=== PATIENT | female | born 1980 | race Two or more races ===

== ENCOUNTER 2022-05-28 10:51 | Emergency (ER) | payer BC, OTHER, SELFPAY ==
--- NOTE | 2022-05-28 11:00 | RT.EKG_ITS ---
APPROVED REPORT Exam: Resting ECG Reason for Exam: chest pain Patient Location: E HR:56 bpm ECG Measurements Heart Rate 56 AXIS MT 135 P 4 QRSd 86 QRS 68 QT 375 T 48 QTc 362 Conclusion Slow sinus arrhythmia...V-rate 45- 66, mean< 60 artifact II and II
[2022-05-28 11:03] VITALS: BP 132/69; PULSE 67; RESP 16; TEMP 36.7; O2SAT 100
[2022-05-28 11:40] LABS: Abs Immature Grans 0.02 10^3/uL (0.0-0.06); Absolute Basophil Count 0.02 10^3/uL (0.0-0.2); Absolute Eosinophil Count 0.11 10^3/uL (0.0-0.7); Absolute Lymphocyte Count 1.22 10^3/uL (1.2-3.4); Basophils % 0.3; Eosinophils % 1.6; HCT 34.7 % (36.0-46.0); HGB 10.2 g/dL (11.2-15.7); Immature Grans % 0.3; Lymphocytes % 18.3; MCH 21.8 pg (27.0-33.0); MCHC 29.4 % (32.0-36.0); MCV 74 fL (80-95); MPV 8.7 fL (8.0-11.0); Neutrophils % 67.5; Platelet Count 431 10^3/uL (130-400); RBC 4.67 10^6/uL (3.93-5.22); RDW 16.3 % (11.7-14.6); RDW-SD 43.5 fL; WBC 6.67 10^3/uL (4.4-10.8)
--- NOTE | 2022-05-28 11:44 | ED.GENADUL_ITS ---
Discharge Plan Disposition Patient Disposition: HOME Condition: Stable Discharge Details Clinical Impression: Chest pain, Anemia, Sinusitis Primary Care Provider: Unknown,Unknown ED Provider: Master Guerrero Home Meds and New Rx's Prescriptions: New amoxicillin-pot clavulanate 875-125 mg tablet 1 tab PO BID Qty: 13 0RF Continued nifedipine 60 mg Tablet Extended Release 24hr 60 mg PO DAILY prednisone 2.5 mg Tablet 2.5 mg PO DAILY nebivolol [Bystolic] 5 mg Tablet 5 mg PO DAILY Discharge Instructions Instructions: Chest Pain (ED), Sinusitis (ED), Anemia (ED) Additional Instructions: Blood testing revealed that you have mild anemia with a hemoglobin of 10.2. Be sure to discuss this with your primary care physician. Please take acetaminophen (tylenol) - 650mg every 6 hours by mouth as needed for pain. Please contact your primary care physician to arrange follow-up. Be sure to discuss and review all final diagnostic study reports with your primary care physician. Return to the ER immediately for any worsening or new concerning symptoms. Medical Decision Making 1300 --42-year-old female who presents 2 to 3 weeks post COVID illness with left-sided pleuritic chest and back pain over the past 4 days. Presentation is not consistent with ACS. Screening EKG was reviewed and interpreted by me: Please see report, there is some wavy artifact, bradycardic at 56 bpm, nondiagnostic. Consider acute life-threatening pulmonary embolism. Plan to obtain CT of the chest. 1333 --CT of the chest was interpreted by radiology: No PE. No acute process. Labs reviewed and troponin negative. Anemia noted. Suspect suspect musculoskeletal etiology. I will give Tylenol 650 mg. Plan for discharge with outpatient follow-up. I have recommended the patient call her PCP. Usual and customary discharge instructions were reviewed with the patient. Patient has had sinus congestion over the past 2 to 3 weeks since COVID. She has no sinus tenderness but given her immunosuppressive therapy, I am concerned about potential for bacterial sinusitis. I will initiate treatment with Augmentin. Initial dose provided here in the emergency department. Patient needs to establish primary care within the area. I will asked the care management help in arranging timely outpatient follow-up with PCP Imaging Data Radiologic Study: Imaging: CT Scan (chest) Radiologist's impression: FINDINGS: Pulmonary arteries: Normal. No pulmonary emboli. Aorta: Unremarkable. No aortic aneurysm. No aortic dissection. Lungs: Low lung volumes. Pleural spaces: Unremarkable. No pneumothorax. No pleural effusion. Heart: Prominent cardiac silhouette. Lymph nodes: Scattered axillary lymph nodes. Bones/joints: Unremarkable for age. No acute fracture. Soft tissues: Unremarkable. IMPRESSION: No acute findings. Lab Data Lab results reviewed: Yes I reviewed the patient's lab results. Labs: Laboratory Tests Range/Units 05/28/22 05/28/22 11:35 11:35 WBC (4.4-10.8) 10^3/uL 6.67 RBC (3.93-5.22) 10^6/uL 4.67 Hgb (11.2-15.7) g/dL 10.2 L Hct (36.0-46.0) % 34.7 L MCV (80-95) fL 74 L MCH (27.0-33.0) pg 21.8 L MCHC (32.0-36.0) % 29.4 L RDW (11.7-14.6) % 16.3 H Plt Count (130-400) 10^3/uL 431 H MPV (8.0-11.0) fL 8.7 Immature Gran % 0.3 Neutrophils % 67.5 Lymphocytes % 18.3 Monocytes % 12.0 Eosinophils % 1.6 Basophils % 0.3 Nucleated RBC % (0.0-0.3) % 0.0 Absolute Neutrophils (1.2-6.7) 10^3/uL 4.50 Absolute Lymphocytes (1.2-3.4) 10^3/uL 1.22 Absolute Monocytes (0.1-0.8) 10^3/uL 0.80 Absolute Eosinophils (0.0-0.7) 10^3/uL 0.11 Absolute Basophils (0.0-0.2) 10^3/uL 0.02 RBC Morphology See Below Microcytosis 2+ Sodium (136-145) mmol/L 138 Potassium (3.5-5.1) mmol/L 3.5 Chloride (98-107) mmol/L 104 Carbon Dioxide (21.0-32.0) mmol/L 25.3 Anion Gap (3-11) mmol/L 8.7 BUN (7-18) mg/dL 11 Creatinine (0.55-1.02) mg/dL 0.7 Est GFR (CKD-EPI 2020) (mL/min/1.73m2) 109.98 Glucose (74-106) mg/dL 85 Calcium (8.5-10.1) mg/dL 9.0 Magnesium (1.8-2.4) mg/dL 2.1 Total Bilirubin (0.2-1.0) mg/dL 0.4 AST (15-37) U/L 10 L ALT (14-59) U/L 21 Alkaline Phosphatase (46-116) U/L 79 Troponin I (<or=60) ng/L < 50 Total Protein (6.4-8.2) g/dL 8.6 H Albumin (3.4-5.0) g/dL 4.0 HPI General Mode of arrival: ambulatory . Date/Time Provider Initiated Documentation: 05/28/22 11:28 . Limitations to Documentation: no limitations . Information obtained by: patient . HPI Narrative: 42-year-old female with history of hypertension and rheumatoid arthritis on chronic low-dose prednisone presents with a chief complaint of back pain. Patient notes she had COVID 2 to 3 weeks ago, symptoms resolved after 5 days or so other than persistent chronic nasal congestion. Patient has now developed left upper back pain and left-sided chest discomfort over the past 4 days that is been constant. Discomfort is worse with deep inspiration. She has no associated leg swelling or calf tenderness. No fever. Related Data Home Medications Medication Instructions Recorded Confirmed amoxicillin 875 mg-potassium 1 tab PO BID #13 tabs 05/28/22 clavulanate 125 mg tablet nebivolol 5 mg tablet (Bystolic) 5 mg PO DAILY 05/28/22 05/28/22 nifedipine 60 mg tablet,extended 60 mg PO DAILY 05/28/22 05/28/22 release 24 hr prednisone 2.5 mg tablet 2.5 mg PO DAILY 05/28/22 05/28/22 Previous Rx's Medication Instructions Recorded amoxicillin 875 mg-potassium 1 tab PO BID #13 tabs 05/28/22 clavulanate 125 mg tablet Allergies Allergy/AdvReac Type Severity Reaction Status Date / Time No Known Allergies Allergy Unverified 05/28/22 11:09 General Stated Complaint: Chest Pain JORDAN: 3 Review of Systems ENT Comments: Sinus congestion Cardiovascular Cardiovascular: Reports as per HPI Respiratory Respiratory: Reports as per HPI PFSH All Active Problems (Updated 05/28/22 @ 13:45 by Master Guerrero MD) Rheumatoid arteritis (Acute) Chest pain (Acute) Anemia (Chronic) Sinusitis (Acute) Social History Smoking/Tobacco Use Status: Never Smoking risk assessment performed?: Yes Alcohol Intake: current Alcohol Intake frequency: 0-2 drinks per day Substance use type: does not use Exam Const General: cooperative and no acute distress HENMT Head: atraumatic Mouth: moist mucous membranes Eyes Conjunctivae: normal conjunctivae Sclera: normal sclerae Neck Neck: trachea midline and supple Resp Effort & Inspection: normal respiratory effort and not labored Auscultation: clear to auscultation bilaterally, no rales, no rhonchi and no wheezes Cardio Rate: regular rate and not tachycardic Rhythm: regular rhythm Heart Sounds: no murmurs GI Palpation: soft, not firm, no guarding, no masses, not rigid and nontender Skin General skin exam: no rashes or lesions noted Neuro General: patient alert, patient awake and tone normal Extrem General: no calf tenderness and no edema Psych Appearance: grossly normal Mental Status: mental status grossly normal Course Vital Signs Vital signs: Vital Signs Temperature 36.7 C 05/28/22 11:03 Pulse 67 05/28/22 11:03 Respiratory Rate 16 05/28/22 11:03 Blood Pressure 132/69 05/28/22 11:03 Pulse Oximetry 100 05/28/22 11:03 Temperature 36.7 C 05/28/22 11:03 Temperature Source Skin 05/28/22 11:03 Pulse 67 05/28/22 11:03 Respiratory Rate 16 05/28/22 11:03 Respiratory Effort 05/28/22 11:39 Respiratory Depth Normal 05/28/22 11:39 Respiratory Pattern Normal 05/28/22 11:39 Blood Pressure 132/69 05/28/22 11:03 Blood Pressure Position Sitting 05/28/22 11:03 Pulse Oximetry 100 05/28/22 11:03 Oxygen Delivery Method Room Air 05/28/22 11:03 Oxygen Flow Rate 0 05/28/22 11:03 Pain Level 7 05/28/22 11:03 PAWSS Have you Been Recently Intoxicated or Drunk Within the Last 30 days?: No Have you Ever Experienced Previous Episodes of Alcohol Withdrawal?: No Have you ever Experienced Withdrawal Seizures?: No Have you ever Experienced Delirium Tremens(DT)s?: No Have you ever undergone Alcohol Rehabilitation Treatment (i.e, inpt ot outpatient treatment programs)?: No Have you ever Experienced Blackouts?: No Have you ever Combined Alcohol with other Downers within the last 90 days?: No Have you ever Combined Alcohol with any other Substance of Abuse during the last 90 days?: No Positive Blood Alcohol level on Presentation? [PCS.BAL]: No Evidence of Increased Autonomic Activity (i.e. HR>120, tremor, sweating, agitation, nausea)?: No Result: 0
[2022-05-28 11:49] LABS: Diff Comment RBC Morph Reviewed; Microcytosis 2+
[2022-05-28 11:58] LABS: ALT 21 U/L (14-59); AST 10 U/L (15-37); Alkaline Phosphatase 79 U/L (46-116); Anion Gap 8.7 mmol/L (3-11); BUN 11 mg/dL (7-18); Bilirubin, Total 0.4 mg/dL (0.2-1.0); CO2 25.3 mmol/L (21.0-32.0); CREATININE 0.7 mg/dL (0.55-1.02); Chloride 104 mmol/L (98-107); Estimated GFR 109.98 (mL/min/1.73m2); Glucose 85 mg/dL (74-106); Magnesium 2.1 mg/dL (1.8-2.4); Potassium 3.5 mmol/L (3.5-5.1); Sodium 138 mmol/L (136-145); Total Protein 8.6 g/dL (6.4-8.2); Troponin I < 50 ng/L (<or=60)
--- NOTE | 2022-05-28 12:16 | DI.CT_ITS ---
Exam(s) CT CHEST PE CTA EXAM: CT CHEST PE CTA CLINICAL HISTORY: pleuritic chest pain, covid 2-3 weeks ago. TECHNIQUE: Imaging Protocol: Axial CT angiography was performed with multi-slice acquisition and mu lti-planar and/or 3D reconstructions. CONTRAST MATERIAL: Intravenous: Omnipaque 350 Contrast volume:structured data in ml COMPARISON: No exams were available for comparison FINDINGS: CT angiography of the chest was performed with intravenous infusion of 100 cc of Omnipaque 350. The lungs are clear. No pleural effusion. Tracheobronchial tree appears intact. No evidence of pulmonary embolic disease. Thoracic aorta is of normal diameter, no thoracic aortic an eurysm or dissection, major branch vessels appear intact. No mediastinal or hilar adenopathy. Images obtained through the upper abdomen show an apparent small left lobe hepatic cyst. Otherwise v isualized portions of the liver and spleen are unremarkable.. IMPRESSION: Negative CT angiogram of the chest. No evidence of pulmonary embolic disease. RADIATION DOSE DELIVERED: 319.93mGy.cm Total DLP 319.93mGy.cm Total DLP !Error CTDIvol DATA REPOSITORY: All CT scans at this facility are submitted to the National Radiology Data Registry (NRDR) Dose Index Registry (DIR) with the [employer] (ACR). RADIATION OPTIMIZATION: All CT scans at this facility use at least one of these dose optimization te chniques: automated exposure control; mA and/or kV adjustment per patient size (includes targeted exa ms where dose is matched to clinical indication); or iterative reconstruction.
--- NOTE | 2022-05-28 13:05 | DI.VRAD_ITS ---
PROCEDURE INFORMATION: Exam: CTA Chest With Contrast Exam date and time: 05/28/2022 11:57 AM Age: 42 years old Clinical indication: Pain; Pleuordynia; Additional info: 2-3 weeks S/P covid TECHNIQUE: Imaging protocol: Computed tomographic angiography of the chest with contrast. 3D rendering (Not supervised by radiologist): MIP and/or 3D reconstructed images were created by the technologist. Radiation optimization: All CT scans at this facility use at least one of these dose optimization techniques: automated exposure control; mA and/or kV adjustment per patient size (includes targeted exams where dose is matched to clinical indication); or iterative reconstruction. Contrast material: [id number]; Contrast volume: 100 ml; Contrast route: INTRAVENOUS (IV); COMPARISON: No relevant prior studies available. FINDINGS: Pulmonary arteries: Normal. No pulmonary emboli. Aorta: Unremarkable. No aortic aneurysm. No aortic dissection. Lungs: Low lung volumes. Pleural spaces: Unremarkable. No pneumothorax. No pleural effusion. Heart: Prominent cardiac silhouette. Lymph nodes: Scattered axillary lymph nodes. Bones/joints: Unremarkable for age. No acute fracture. Soft tissues: Unremarkable. IMPRESSION: No acute findings. Dictated and Authenticated by: Felisa Harris MD. Ordering:POP Thao MD
--- NOTE | 2022-05-28 13:30 | RT.EKG_ITS ---
APPROVED REPORT Exam: Resting ECG Reason for Exam: chest pain Patient Location: E HR:53 bpm ECG Measurements Heart Rate 53 AXIS IL 136 P 8 QRSd 85 QRS 58 QT 402 T 27 QTc 377 Conclusion Sinus bradycardia...rate< 60
--- NOTE | 2022-05-28 13:50 | NUR.NOTE ---
Dr Guerrero requesting the patient get established with a PCP,patient does not currently have a PCP. I placed this on the care management list. ROSENDAB
[2022-05-28] MEDS: Acetaminophen 325 MG TAB 650 MG PO (13:52)
[2022-05-28] MEDS: Amoxicillin 875/Clav. 125 TAB PO (13:52)
[2022-05-28] MEDS: Omnipaque 350 MG/ML 100 ML BTL IJ (14:47)
== END 2022-05-28 14:12 | disposition home or self-care (01) ==
PROVIDERS: Emergency Provider Student in an Organized Health Care Education/Training Program
DX: R07.81 Pleurodynia (principal); J32.9 Chronic sinusitis, unspecified; D64.9 Anemia, unspecified; Z86.16 Personal history of COVID-19; R00.1 Bradycardia, unspecified; M54.6 Pain in thoracic spine
CPT/HCPCS: 71275; 80053; 93005; 99285; 83735; 84484; 85025; 93010; 99284; J3490

== ENCOUNTER 2023-09-28 01:51 | Observation (INO) | payer BC, OTHER, SELFPAY ==
[2023-09-28] VITALS (13 sets, daily range): BP systolic 100–171; BP diastolic 52–89; PULSE 54–74; RESP 14–18; TEMP 36.5–37.9; O2SAT 98–100; BMI 23.9
--- NOTE | 2023-09-28 02:00 | DI.CT_ITS ---
Exam(s) CT ABDOMEN PELVIS WO EXAM: CT ABDOMEN PELVIS WO CLINICAL HISTORY: left upper flank pain, eval for stone/ diverticult. TECHNIQUE: Imaging Protocol: Axial computed tomography images with coronal and sagittal reformatted images were created and reviewed CONTRAST MATERIAL: Intravenous: none Oral: None COMPARISON: CT CT CHEST PE CTA from 05/28/2022 FINDINGS: VISUALIZED LUNG BASES: No nodules nor pleural effusions evident. ABDOMEN: There is no ascites. LIVER: There is a benign cyst in the left hepatic lobe again noted, measuring 1 cm, unchanged. No ot her additional focal liver findings. GALLBLADDER/BILIARY: There are multiple gallstones which measure approximately 1.4 by 1.2 cm each. G allbladder appears edematous. CBD is not dilated and there are no radiopaque calculi evident in the CBD. PANCREAS: No evidence of pancreatic mass nor dilatation of the pancreatic duct. SPLEEN: Spleen is not enlarged. No obvious intrasplenic lesions. ADRENALS: There are no significant adrenal masses. KIDNEYS:No cysts evident. No solid renal masses. No calculi nor hydronephrosis. . ABDOMINAL AORTA: Abdominal aorta is not enlarged. LYMPH NODES: There is no retroperitoneal nor paraaortic adenopathy. ABDOMINAL WALL: No evidence of significant anterior abdominal wall nor inguinal hernia. GI: There is no evidence of bowel obstruction, free air, nor abscess. PELVIS: LYMPH NODES: There is no intrapelvic nor inguinal adenopathy. GI: No evidence of appendicitis.No evidence of sigmoid diverticulitis. URINARY BLADDER: No calculi nor obvious masses evident REPRODUCTIVE: Uterus is anteverted, upper normal size. No obvious fibroids. No abnormal adnexal mas ses. Small amount of fluid in the cul-de-sac. OSSEOUS: No significant osseous lesions. No fractures. IMPRESSION: 1. Cholelithiasis. There are multiple 14 x 12 mm gallstones and there is gallbladder wall edema, con cerning for acute cholecystitis. The CBD is not dilated and does not contain radiopaque calculi. Th ere is no evidence of pancreatitis. 2. There is a 1 cm benign cyst in the liver which is unchanged from prior CT scan of May 2022. n o further workup required for this finding. RADIATION DOSE DELIVERED: 692.6mGy.cm Total DLP DATA REPOSITORY: All CT scans at this facility are submitted to the National Radiology Data Registry (NRDR) Dose Index Registry (DIR) with the [employer] (ACR). RADIATION OPTIMIZATION: All CT scans at this facility use at least one of these dose optimization te chniques: automated exposure control; mA and/or kV adjustment per patient size (includes targeted exa ms where dose is matched to clinical indication); or iterative reconstruction.
--- NOTE | 2023-09-28 02:00 | RT.EKG_ITS ---
APPROVED REPORT Exam: Resting ECG Reason for Exam: chest pain Patient Location: E HR:55 bpm ECG Measurements Heart Rate 55 AXIS WI 155 P 6 QRSd 86 QRS 55 QT 400 T 17 QTc 383 Conclusion Sinus bradycardia...rate< 60 Physician: [id number]. No stemi
--- NOTE | 2023-09-28 02:02 | W.ED.GENAD ---
HPI <Chuck Tellez DO - Last Filed: 09/28/23 07:11> General Date/Time Provider Initiated Documentation: 09/28/23 01:52. HPI Narrative: This is a pleasant 43-year-old female with a past medical history of rheumatoid arthritis on chronic prednisone, hypertension, who presents today for evaluation of left flank pain. Patient states that for the last 2 days she has had a gradual dull achy sensation in her left flank and back. She has been still eating normal foods, but she has been notably nauseous. She did have some vomiting today. No diarrhea. She does admit to chills but denies fever. No urinary complaints. Abdominal pain radiates from the left flank down to the left anterior lateral aspect of the abdomen. As well as some mild left epigastric pain. She denies any tearing or ripping sensation. No previous abdominal surgeries. No other complaints at this time. No family history of colon cancer. No other sick contacts at home. Related Data Home Medications Medication Instructions Recorded Confirmed nebivolol 5 mg tablet (Bystolic) 5 mg PO DAILY 05/28/22 09/28/23 nifedipine 60 mg tablet,extended 60 mg PO DAILY 05/28/22 09/28/23 release 24 hr cetirizine 10 mg tablet (Zyrtec) 10 mg PO DAILY PRN 09/17/23 09/28/23 hydroxychloroquine 200 mg tablet 200 mg PO DAILY 09/17/23 09/28/23 (Plaquenil) prednisone 5 mg tablet 5 mg PO DAILY 09/17/23 09/28/23 zafirlukast 10 mg tablet 20 mg PO ONCE 09/17/23 09/28/23 Allergies Allergy/AdvReac Type Severity Reaction Status Date / Time No Known Allergies Allergy Unverified 09/28/23 02:00 General Stated Complaint: Abd Prob JORDAN: 3 Review of Systems <Chuck Tellez DO - Last Filed: 09/28/23 07:11> All systems reviewed & are unremarkable except as noted in HPI and below Exam <Chuck Tellez DO - Last Filed: 09/28/23 07:11> Narrative Exam Narrative: 1.Const: Well-nourished, Well-developed, appearing stated age 2.Eyes: PERRL, no conjunctival injection, and symmetrical lids. 3.ENT: Atraumatic external nose and ears. Moist MM. Neck: Symmetric, trachea midline, No thyromegaly. 4.CVS: +S1/S2, No murmurs or gallops. Peripheral pulses 2+ and equal in all extremities. Brisk capillary refill in all extremities. 5.RESP: Unlabored respiratory effort. Clear to auscultation bilaterally. No wheezes rales or rhonchi 6.GI: Soft, mild bloating. No rosa maria distention. Mild left-sided CVA tenderness. Mild left-sided abdominal tenderness in the epigastric and mid abdominal region on the left. 7.MSK: Normocephalic/Atraumatic, Extremities w/o deformity or ttp No cyanosis or clubbing, Normal movement of all extremities 8.Skin: Warm, Dry. No rashes or lesions. 9.Neuro: measurement operator II-XII grossly intact. Sensation grossly intact, no focal neurologic deficits. 10.Psych: (AAO) x3. Appropriate mood and affect Course <Chuck Tellez DO - Last Filed: 09/28/23 07:11> Vital Signs Vital signs: Vital Signs Temperature 36.6 C 09/28/23 01:58 Pulse 68 09/28/23 01:58 Respiratory Rate 18 09/28/23 01:58 Blood Pressure 132/67 09/28/23 01:58 Pulse Oximetry 100 09/28/23 01:58 Temperature 36.6 C 09/28/23 01:58 Temperature Source Temporal Artery Scan 09/28/23 01:58 Pulse 68 09/28/23 01:58 Respiratory Rate 18 09/28/23 01:58 Blood Pressure 132/67 09/28/23 01:58 Pulse Oximetry 100 09/28/23 01:58 Oxygen Delivery Method Room Air 09/28/23 01:58 Oxygen Flow Rate 0 09/28/23 01:58 Pain Level 7 09/28/23 01:58 Medical Decision Making <Chuck Tellez DO - Last Filed: 09/28/23 07:11> This is a pleasant 43-year-old female with a past medical history of rheumatoid arthritis on chronic prednisone, hypertension, who presents today for evaluation of left flank pain. Patient states that for the last 2 days she has had a gradual dull achy sensation in her left flank and back. She has been still eating normal foods, but she has been notably nauseous. She did have some vomiting today. No diarrhea. She does admit to chills but denies fever. No urinary complaints. Abdominal pain radiates from the left flank down to the left anterior lateral aspect of the abdomen. As well as some mild left epigastric pain. She denies any tearing or ripping sensation. No previous abdominal surgeries. No other complaints at this time. No family history of colon cancer. No other sick contacts at home. Exam demonstrates mild left CVA tenderness, left-sided epigastric and abdominal tenderness. No guarding or rebound. Negative obturator and psoas sign. Differential includes urolithiasis, diverticulitis, gastric ulcer. Less likely cardiac etiology. Will evaluate for these concerning etiologies, get a CT scan, give Toradol Zofran GI cocktail and rehydrate gently monitor closely and reassess. 4:06 AM Patient's laboratory workup has returned, she does feel better after medications. No white count or bandemia. No left shift. D-dimer was normal. EKG shows no evidence of STEMI. Electrolytes normal, renal function normal. Transaminases and bilirubin normal. Troponin normal. Urinalysis shows no abnormality. CT scan shows evidence of cholelithiasis with pericholecystic fluid without significant inflammatory changes. No other acute process per virtual radiology. There is evidence of a benign-appearing hepatic cyst, but no other significant abnormality otherwise. On reexamination the patient's pain is diminished, right upper quadrant tenderness is mildly appreciated on deep palpation. With the pericholecystic fluid, the gallstones, and the mild right upper quadrant tenderness, I do feel that ultrasound is indicated in this scenario with her atypical and diffuse symptoms. We we will order for an ultrasound this morning. FINDINGS: Lungs: Minimal bibasilar dependent. Heart: Base of heart is unremarkable as visualized. Liver: Fluid attenuating 9 x 8 mm hepatic hypodensity appreciated in the left hepatic lobe, consistent with benign hepatic cysts. Gallbladder and bile ducts: Four large calcified gallstones are appreciated. A smaller punctate gallstone is noted towards the fundus. Small amount of pericholecystic fluid is noted without significant surrounding inflammatory change. Pancreas: Normal. No ductal dilation. Spleen: Normal. No splenomegaly. Adrenal glands: Normal. No mass. Kidneys and ureters: No evidence of calcified renal stone. No obstruction. Stomach and bowel: Unremarkable. No obstruction. No mucosal thickening. Appendix: No evidence of appendicitis. Intraperitoneal space: Unremarkable. No free air. No significant fluid collection. Vasculature: Unremarkable. No abdominal aortic aneurysm. Lymph nodes: Unremarkable. No enlarged lymph nodes. Urinary bladder: Unremarkable as visualized. Reproductive: Unremarkable as visualized. 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 Soft tissues: Small fat containing umbilical hernia is noted. Other findings: All caps impression: IMPRESSION: 1. Cholelithiasis with pericholecystic fluid without significant surrounding inflammatory change. If there is clinical concern for cholecystitis ultrasound is recommended. 2. Benign hepatic cyst. Thank you for allowing us to participate in the care of your patient. Dictated and Authenticated by: Leo Lagos DO 09/28/2023 3:45 AM Eastern Time ([place] & [place]) Quality:[facility] Health Related Social Needs: No Data to Display <Prince Quevedo MD - Last Filed: 09/28/23 10:37> This is a pleasant 43-year-old female with a past medical history of rheumatoid arthritis on chronic prednisone, hypertension, who presents today for evaluation of left flank pain. Patient states that for the last 2 days she has had a gradual dull achy sensation in her left flank and back. She has been still eating normal foods, but she has been notably nauseous. She did have some vomiting today. No diarrhea. She does admit to chills but denies fever. No urinary complaints. Abdominal pain radiates from the left flank down to the left anterior lateral aspect of the abdomen. As well as some mild left epigastric pain. She denies any tearing or ripping sensation. No previous abdominal surgeries. No other complaints at this time. No family history of colon cancer. No other sick contacts at home. Exam demonstrates mild left CVA tenderness, left-sided epigastric and abdominal tenderness. No guarding or rebound. Negative obturator and psoas sign. Differential includes urolithiasis, diverticulitis, gastric ulcer. Less likely cardiac etiology. Will evaluate for these concerning etiologies, get a CT scan, give Toradol Zofran GI cocktail and rehydrate gently monitor closely and reassess. 4:06 AM Patient's laboratory workup has returned, she does feel better after medications. No white count or bandemia. No left shift. D-dimer was normal. EKG shows no evidence of STEMI. Electrolytes normal, renal function normal. Transaminases and bilirubin normal. Troponin normal. Urinalysis shows no abnormality. CT scan shows evidence of cholelithiasis with pericholecystic fluid without significant inflammatory changes. No other acute process per virtual radiology. There is evidence of a benign-appearing hepatic cyst, but no other significant abnormality otherwise. On reexamination the patient's pain is diminished, right upper quadrant tenderness is mildly appreciated on deep palpation. With the pericholecystic fluid, the gallstones, and the mild right upper quadrant tenderness, I do feel that ultrasound is indicated in this scenario with her atypical and diffuse symptoms. We we will order for an ultrasound this morning. FINDINGS: Lungs: Minimal bibasilar dependent. Heart: Base of heart is unremarkable as visualized. Liver: Fluid attenuating 9 x 8 mm hepatic hypodensity appreciated in the left hepatic lobe, consistent with benign hepatic cysts. Gallbladder and bile ducts: Four large calcified gallstones are appreciated. A smaller punctate gallstone is noted towards the fundus. Small amount of pericholecystic fluid is noted without significant surrounding inflammatory change. Pancreas: Normal. No ductal dilation. Spleen: Normal. No splenomegaly. Adrenal glands: Normal. No mass. Kidneys and ureters: No evidence of calcified renal stone. No obstruction. Stomach and bowel: Unremarkable. No obstruction. No mucosal thickening. Appendix: No evidence of appendicitis. Intraperitoneal space: Unremarkable. No free air. No significant fluid collection. Vasculature: Unremarkable. No abdominal aortic aneurysm. Lymph nodes: Unremarkable. No enlarged lymph nodes. Urinary bladder: Unremarkable as visualized. Reproductive: Unremarkable as visualized. 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 Soft tissues: Small fat containing umbilical hernia is noted. Other findings: All caps impression: IMPRESSION: 1. Cholelithiasis with pericholecystic fluid without significant surrounding inflammatory change. If there is clinical concern for cholecystitis ultrasound is recommended. 2. Benign hepatic cyst. Thank you for allowing us to participate in the care of your patient. Dictated and Authenticated by: Leo Lagos DO 09/28/2023 3:45 AM Eastern Time ([place] & [place]) 10: [address] and ultrasound imaging general surgeon Dr. Ames was consulted for evaluation for possible cholecystitis. Patient remains nonperitoneal afebrile nontoxic. Has been n.p.o. all evening.. Patient be taken for cholecystectomy PFSH <Chuck Tellez DO - Last Filed: 09/28/23 07:11> All Active Problems (Updated 09/28/23 @ 10:37 by Prince Quevedo MD) Cholecystitis (Acute) Rheumatoid arthritis (Chronic) Seropositive CCP and RF Hypertension (Chronic) Osteoarthritis (Chronic) Rheumatoid arteritis (Acute) Family History Father Alcohol use disorder Heart disease Hypertension Mother Glaucoma Social History Smoking/Tobacco Use Status: Never Second Hand Exposure: No Smoking risk assessment performed?: Yes Alcohol Intake: current Alcohol Intake frequency: 0-2 drinks per day Substance use type: does not use Adopted: No Caregiver/Support person: No Foster care: No Household members: spouse and children Housing: house Number of Children: 3 Communication Needs: None Education Level: master's degree Do you need help understanding health information?: Rarely 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 Pets and animals: Yes (1) Pets and animals: dog(s) Sexually active: No Do you think of yourself as: straight/heterosexual Current gender identity: female What is your relationship status?: How often do you talk on the phone with friends or family?: three or more times per week How often do you get together with friends or relatives?: once per week Do you belong to any clubs or organized social groups?: no Panel score (0-1 are the most socially isolated patients): 2 What type of physical activity do you participate in: walking Duration: 30-45 minutes/day Frequency: 5-6 times per week Special chrystal needs: No Seatbelt use: always Helmet use: Yes Drive intox or ride w/intox truss driver helper: No Sign Out <Chuck Tellez DO - Last Filed: 09/28/23 07:11> Sign Out Data: Sign Out Comment: Left flank pain and right upper quadrant pain on palpation. CT shows pericholecystic fluid and multiple gallstones. Labs normal. Pending ultrasound. Last updated by Chuck Tellez DO at 09/28/23 05:12 Discharge Plan Disposition Patient Disposition: Admit to [facility] Condition: Stable Discharge Details Chief Complaint: Abd Prob Clinical Impression: Cholecystitis Primary Care Provider: Unknown,Unknown ED Provider: Prince Quevedo Home Meds and New Rx's Prescriptions: No Action hydroxychloroquine [Plaquenil] 200 mg tablet 200 mg PO DAILY prednisone 5 mg tablet 5 mg PO DAILY zafirlukast 10 mg tablet 20 mg PO ONCE Rx Instructions: must be taken on empty stomach, at least 1 hr before or 2 hrs after a meal/food cetirizine [Zyrtec] 10 mg tablet 10 mg PO DAILY PRN nifedipine 60 mg Tablet Extended Release 24hr 60 mg PO DAILY nebivolol [Bystolic] 5 mg Tablet 5 mg PO DAILY
[2023-09-28 02:18] LABS: Abs Immature Grans 0.02 10^3/uL (0.0-0.06); Absolute Basophil Count 0.05 10^3/uL (0.0-0.2); Absolute Eosinophil Count 0.05 10^3/uL (0.0-0.7); Absolute Lymphocyte Count 1.04 10^3/uL (1.2-3.4); Absolute Monocyte Count 0.68 10^3/uL (0.1-0.8); Absolute Neutrophil Count 4.41 10^3/uL (1.2-6.7); Basophils % 0.8; Eosinophils % 0.8; HGB 10.9 g/dL (11.2-15.7); Immature Grans % 0.3; Lymphocytes % 16.6; MCH 25.4 pg (27.0-33.0); MCHC 31.1 % (32.0-36.0); MCV 82 fL (80-95); Monocytes % 10.9; Neutrophils % 70.6; Platelet Count 369 10^3/uL (130-400); RBC 4.29 10^6/uL (3.93-5.22); RDW 14.8 % (11.7-14.6); RDW-SD 44.1 fL; WBC 6.25 10^3/uL (4.4-10.8)
[2023-09-28] MEDS: Ondansetron 4 MG/2 ML VIAL IVP (02:26)
[2023-09-28] MEDS: Normal Saline 1,000 ML 1000 ML IV (02:26)
[2023-09-28] MEDS: Ketorolac 15 MG/ML VIAL IVP (02:26)
[2023-09-28 02:28] LABS: Bilirubin Negative (Negative); Blood Negative (Negative); Clarity Clear (Clear); Glucose Negative (Negative); Ketones Negative (Negative); Leukocyte Esterase Negative (Negative); Nitrite Negative (Negative); Urobilinogen 0.2 mg/dL (Up to 0.2); pH 7.5 (5-8)
[2023-09-28 02:36] LABS: ALT 15 U/L (14-59); AST 9 U/L (15-37); Albumin 3.8 g/dL (3.4-5.0); Alkaline Phosphatase 59 U/L (46-116); Anion Gap 9.4 mmol/L (3-11); BUN 12 mg/dL (7-18); Bilirubin, Total 0.2 mg/dL (0.2-1.0); CO2 26.6 mmol/L (21.0-32.0); CREATININE 0.8 mg/dL (0.55-1.02); Calcium 8.9 mg/dL (8.5-10.1); Chloride 104 mmol/L (98-107); Estimated GFR 93.12 (mL/min/1.73m2); Glucose 124 mg/dL (74-106); Lipase 43 U/L (16-77); Potassium 3.8 mmol/L (3.5-5.1); Sodium 140 mmol/L (136-145); Total Protein 7.6 g/dL (6.4-8.2); Troponin I < 50 ng/L (< or =60)
[2023-09-28 02:53] LABS: D-Dimer 180 ng/mlFEU (<500)
--- NOTE | 2023-09-28 03:45 | DI.VRAD_ITS ---
PROCEDURE INFORMATION: Exam: CT Abdomen And Pelvis Without Contrast Exam date and time: 09/28/2023 3:09 AM Age: 43 years old Clinical indication: Abdominal pain; Flank; Left upper quadrant (luq); Additional info: Luq flank pain, no h/o surg or kidney stones, pain x 2 days worsening, eval for stone / diverticulitis TECHNIQUE: Imaging protocol: Computed tomography of the abdomen and pelvis without contrast. COMPARISON: CT CHEST PE CTA 05/28/2022 11:57 AM FINDINGS: Lungs: Minimal bibasilar dependent. Heart: Base of heart is unremarkable as visualized. Liver: Fluid attenuating 9 x 8 mm hepatic hypodensity appreciated in the left hepatic lobe, consistent with benign hepatic cysts. Gallbladder and bile ducts: Four large calcified gallstones are appreciated. A smaller punctate gallstone is noted towards the fundus. Small amount of pericholecystic fluid is noted without significant surrounding inflammatory change. Pancreas: Normal. No ductal dilation. Spleen: Normal. No splenomegaly. Adrenal glands: Normal. No mass. Kidneys and ureters: No evidence of calcified renal stone. No obstruction. Stomach and bowel: Unremarkable. No obstruction. No mucosal thickening. Appendix: No evidence of appendicitis. Intraperitoneal space: Unremarkable. No free air. No significant fluid collection. Vasculature: Unremarkable. No abdominal aortic aneurysm. Lymph nodes: Unremarkable. No enlarged lymph nodes. Urinary bladder: Unremarkable as visualized. Reproductive: Unremarkable as visualized. 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 Soft tissues: Small fat containing umbilical hernia is noted. Other findings: All caps impression: IMPRESSION: 1. Cholelithiasis with pericholecystic fluid without significant surrounding inflammatory change. If there is clinical concern for cholecystitis ultrasound is recommended. 2. Benign hepatic cyst. Dictated and Authenticated by: Leo Lagos MD. Ordering:JULIUS Woods MD
--- NOTE | 2023-09-28 04:00 | DI.US_ITS ---
Exam(s) US ABDOMEN LIMITED EXAM: US ABDOMEN LIMITED CLINICAL HISTORY: RUQ pain, eval for cholecystitis TECHNIQUE: Ultrasound abdomen performed using standard protocol. COMPARISON: CT CT ABDOMEN PELVIS WO from 09/28/2023 FINDINGS: There is no ascites evident. LIVER: There is a benign cyst in the left hepatic lobe measuring 1.5 x 1.0 cm. GALLBLADDER/BILIARY: There are multiple mobile gallstones. Gallbladder wall is mildly thickened-4 mm , and there is a small amount of pericholecystic fluid. The common hepatic duct ismildly dilated, measuring 7mm at the level of [place] hepatis. PANCREAS: There is no evidence of pancreatic mass nor dilatation of the pancreatic duct. RIGHT KIDNEY:No evidence of solid mass, calculus, nor hydronephrosis. No cortical cysts evident. IMPRESSION: 1. Cholelithiasis and evidence of acute cholecystitis. 2. CBD mildly dilated measuring 7 mm. 3. There is a solitary benign cyst in the left hepatic lobe measuring 15 x 10 mm. No other right upper quadrant finding no ascites. DATA REPOSITORY:
[2023-09-28] MEDS: ACETAMINOPHEN 1,000 MG/100 ML BTL 400 MG IVPB (04:22)
--- NOTE | 2023-09-28 10:39 | HPE_ITS ---
Assessment and Plan Assessment and plan (1) Cholecystitis: Status: Acute Assessment and plan: History and physical seems most consistent with acute cholecystitis. Large gallstones, pericholecystic fluid on the ultrasound are also consistent with that diagnosis. We talked about different management options, but at this point, I think she is a great candidate for a laparoscopic cholecystectomy. We talked about the risks and benefits of the operation, what to expect in terms of recovery. I think she has a very good understanding of this, we will proceed with cholecystectomy today. History of Present Illness History of Present Illness Chief Complaint: Abdominal pain Narrative: Maddy is 43 years old. Over the past several days she has noticed intermittent upper abdominal discomfort. She was feeling pretty good yesterday, but began developing increasing pain in the same area through the later part of the night up to about 1:00 in the morning. She had a cheeseburger and Chinese fries for dinner. She describes the pain as sharp and stabbing, and radiating a little bit across the mid epigastrium towards her right and left flanks. It was associated with a little bit of loss of appetite, and maybe some mild nausea, but no vomiting. She denied any subjective sense of fevers. She came to the emergency department and underwent a CAT scan of the abdomen and pelvis that demonstrated cholelithiasis. This was followed up with a ultrasound that showed some gallbladder wall thickening, and some pericholecystic fluid. She has never had any abdominal surgery. Past medical history is most significant for rheumatoid arthritis and hypertension. Review of Systems Constitutional Constitutional: Reports fatigue, Denies fever(s) and Reports poor appetite Eyes Eyes: Reports system reviewed and no additional complaints, except as documented ENT Ears, Nose, Mouth, and Throat: Reports system reviewed and no additional complaints, except as documented Cardiovascular Cardiovascular: Denies chest pain and Denies dyspnea Respiratory Respiratory: Denies chest congestion, Denies cough and Denies dyspnea Gastrointestinal Gastrointestinal: Reports abdominal pain, Reports bloating, Denies change in stool character and Denies vomiting Musculoskeletal Musculoskeletal: Reports system reviewed and no additional complaints, except as documented Integumentary/Breasts Skin/Breast: Reports system reviewed and no additional complaints, except as documented Neurologic Neurologic: Reports system reviewed and no additional complaints, except as documented Endocrine Endocrine: Denies cold intolerance and Reports fatigue Hematologic/Lymphatic Hematologic/Lymphatic: Denies easy bleeding and Denies easy bruising PFSH All Active Problems Cholecystitis (Acute) Rheumatoid arthritis (Chronic) Seropositive CCP and RF Hypertension (Chronic) Osteoarthritis (Chronic) Rheumatoid arteritis (Acute) Family History Father Alcohol use disorder Heart disease Hypertension Mother Glaucoma Social History Smoking/Tobacco Use Status: Never Second Hand Exposure: No Smoking risk assessment performed?: Yes Alcohol Intake: current Alcohol Intake frequency: 0-2 drinks per day Substance use type: does not use Adopted: No Caregiver/Support person: No Foster care: No Household members: spouse and children Housing: house Number of Children: 3 Communication Needs: None Education Level: master's degree Do you need help understanding health information?: Rarely 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 Pets and animals: Yes (1) Pets and animals: dog(s) Sexually active: No Do you think of yourself as: straight/heterosexual Current gender identity: female What is your relationship status?: How often do you talk on the phone with friends or family?: three or more times per week How often do you get together with friends or relatives?: once per week Do you belong to any clubs or organized social groups?: no Panel score (0-1 are the most socially isolated patients): 2 What type of physical activity do you participate in: walking Duration: 30-45 minutes/day Frequency: 5-6 times per week Special chrystal needs: No Seatbelt use: always Helmet use: Yes Drive intox or ride w/intox high lift driver: No Meds Allergies and Home Medications Allergies Allergy/AdvReac Type Severity Reaction Status Date / Time No Known Allergies Allergy Unverified 09/28/23 02:00 Home Medications Medication Instructions Recorded Confirmed Type nebivolol 5 mg tablet (Bystolic) 5 mg PO DAILY 05/28/22 09/28/23 History nifedipine 60 mg tablet,extended 60 mg PO DAILY 05/28/22 09/28/23 History release 24 hr cetirizine 10 mg tablet (Zyrtec) 10 mg PO DAILY PRN 09/17/23 09/28/23 History hydroxychloroquine 200 mg tablet 200 mg PO DAILY 09/17/23 09/28/23 History (Plaquenil) prednisone 5 mg tablet 5 mg PO DAILY 09/17/23 09/28/23 History zafirlukast 10 mg tablet 20 mg PO ONCE 09/17/23 09/28/23 History Exam Const General: cooperative, healthy appearing and comfortable Orientation: awake and oriented x3 Eyes General: appearance normal, both eyes and all related structures Conjunctivae: conjunctivae normal Sclera: sclerae normal Resp Effort & Inspection: normal respiratory effort and able to speak in complete sentences Auscultation: clear to auscultation bilaterally Cardio Jugular venous pressure: no JVD Rate: regular rate Rhythm: regular rhythm GI Inspection: non-distended Palpation: soft, no guarding, no hernias and tender (Mild right upper quadrant) Auscultation: normal bowel sounds Skin General skin exam: normal turgor Neuro General: patient alert, patient awake and patient oriented x3 Cognition: normal cognition Extrem Right lower extremity: no edema Left lower extremity: no edema Results Labs 09/28/23 02:10 09/28/23 02:10 Labs: Laboratory Results - last 24 hr 09/28/23 02:10 WBC 6.25 RBC 4.29 Hgb 10.9 L Hct 35.0 L MCV 82 MCH 25.4 L MCHC 31.1 L RDW 14.8 H Plt Count 369 MPV 9.0 Immature Gran % 0.3 Neutrophils % 70.6 Lymphocytes % 16.6 Monocytes % 10.9 Eosinophils % 0.8 Basophils % 0.8 Nucleated RBC % 0.0 Absolute Neutrophils 4.41 Absolute Lymphocytes 1.04 L Absolute Monocytes 0.68 Absolute Eosinophils 0.05 Absolute Basophils 0.05 D-Dimer 180 Sodium 140 Potassium 3.8 Chloride 104 Carbon Dioxide 26.6 Anion Gap 9.4 BUN 12 Creatinine 0.8 Est GFR (CKD-EPI 2020) 93.12 Glucose 124 H Calcium 8.9 Total Bilirubin 0.2 AST 9 L ALT 15 Alkaline Phosphatase 59 Troponin I < 50 Total Protein 7.6 Albumin 3.8 Lipase 43 Urine Color Yellow Urine Clarity Clear Urine pH 7.5 Ur Specific [place] 1.020 Urine Protein Negative Urine Ketones Negative Urine Blood Negative Urine Nitrite Negative Urine Bilirubin Negative Urine Urobilinogen 0.2 Ur Leukocyte Esterase Negative Urine Glucose Negative Last Vital Signs Temp 98.1 F 09/28/23 06:13 Pulse 64 02/09/24 06:13 Resp 16 09/28/23 06:13 BP 100/52 L 09/28/23 06:13 Pulse Ox 98 09/28/23 06:13
--- NOTE | 2023-09-28 12:49 | ANES.PREOP_ITS ---
General Info Date of Service Date Performed: 09/28/23 Height: 5 ft 3 in Weight: 61.235 kg Body Mass Index (BMI): 23.9 Surgical Procedure: Operation Date: 09/28/23 14:10 Proposed Procedure Side Surgeon p Cholecystectomy Laparoscopic Jose Luis Ames MD Meds Allergies and Home Medications Allergies Allergy/AdvReac Type Severity Reaction Status Date / Time No Known Allergies Allergy Unverified 09/28/23 13:36 Home Medication Medication Instructions Recorded nebivolol 5 mg tablet (Bystolic) 5 mg PO DAILY 05/28/22 nifedipine 60 mg tablet,extended 60 mg PO DAILY 05/28/22 release 24 hr cetirizine 10 mg tablet (Zyrtec) 10 mg PO DAILY PRN 09/17/23 hydroxychloroquine 200 mg tablet 200 mg PO DAILY 09/17/23 (Plaquenil) prednisone 5 mg tablet 5 mg PO DAILY 09/17/23 zafirlukast 10 mg tablet 20 mg PO ONCE 09/17/23 [facility] Active Problems Active Problems: Problem Status Onset Code Cholecystitis K81.9 Rheumatoid arthritis M06.9 Hypertension I10 Osteoarthritis M19.90 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 Tobacco Smoking/Tobacco Use Status: Never Second hand exposure: No Alcohol Alcohol Intake: current Alcohol intake frequency: 0-2 drinks per day Substance Use Substance use type: does not use Vital Signs and Lab Results Vital Signs Most Recent Vital Signs in EMR: Most Recent Vital Signs Temp Pulse Resp BP Pulse Ox 36.7 C 64 16 100/52 L 98 09/28/23 06:13 09/28/23 06:13 09/28/23 06:13 09/28/23 06:13 09/28/23 06:13 Lab Results 09/28/23 02:10 09/28/23 02:10 Blood Type / Crossmatch: 2 No Data to Display Complete Blood Count: 2 White Blood Count 6.25 10^3/uL (4.4-10.8) 09/28/23 02:10 Red Blood Count 4.29 10^6/uL (3.93-5.22) 09/28/23 02:10 Hemoglobin 10.9 g/dL (11.2-15.7) L 09/28/23 02:10 Hematocrit 35.0 % (36.0-46.0) L 09/28/23 02:10 Platelet Count 369 10^3/uL (130-400) 09/28/23 02:10 Complete Metabolic Panel: 2 Sodium 140 mmol/L (136-145) 09/28/23 02:10 Potassium 3.8 mmol/L (3.5-5.1) 09/28/23 02:10 Chloride 104 mmol/L (98-107) 09/28/23 02:10 Carbon Dioxide 26.6 mmol/L (21.0-32.0) 09/28/23 02:10 BUN 12 mg/dL (7-18) 09/28/23 02:10 Creatinine 0.8 mg/dL (0.55-1.02) 09/28/23 02:10 Est GFR (CKD-EPI 2020) 93.12 (mL/min/1.73m2) 09/28/23 02:10 Calcium 8.9 mg/dL (8.5-10.1) 09/28/23 02:10 Albumin 3.8 g/dL (3.4-5.0) 09/28/23 02:10 Glucose 124 mg/dL (74-106) H 09/28/23 02:10 Liver Function Panel: 2 Alanine Aminotransferase (ALT/SGPT) 15 U/L (14-59) 09/28/23 02: 10 Aspartate Amino Transf (AST/SGOT) 9 U/L (15-37) L 09/28/23 02:1 0 Coagulation Panel: 2 D-Dimer 180 ng/mlFEU (<500) 09/28/23 02:10 Cardiac Panel: 2 Troponin I < 50 ng/L (< or =60) 09/28/23 Arterial Blood Gas: 2 No Data to Display Venous Blood Gas: 2 No Data to Display Pancreas Panel: 2 Lipase 43 U/L (16-77) 09/28/23 02:10 Thyroid Panel: 2 No Data to Display Infectious Disease: 2 No Data to Display Blood Cultures: 2 No Data to Display Toxicology Panel: 2 No Data to Display Panel: 2 No Data to Display Imaging and Studies Imaging and Studies Study information below may be from another EMR and interpreted by another provider. Please see original notes in EMR for more complete details. EKG Summary: 10/13: sinus balta. Anesthesia Assessment and Plan Anesthesia History Personal History: No History of Anesthesia Complications Family History: No Family History of Anesthesia Complications Exercise Tolerance Exercise Tolerance: Metabolic Equivalents>4 Cardiac & Pulmonary Exam Cardiac Exam: Normal S1/S2 Heart Sounds Pulmonary Exam: Clear Bilateral Breath Sounds Implantable Cardiac Device Does patient have a Pacemaker or an ICD?: No Airway Exam Known Difficult Airway: No Mallampati Class: 3 Mouth Opening: Narrow (< 3cm) Thyromental Distance: Greater than 3 cm Neck Range of Motion: Full ROM Neck Circumference: Normal Teeth Condition: Normal Dentition ASA Classification ASA Score: ASA 2 Emergency Case?: Yes NPO Status NPO Status: NPO Clears >2 hours, Solids >8 hours Status Status: Negative HCG Anesthesia Plan Resuscitation Status: Full Code Anesthesia Technique: General Anesthesia Airway Planned: Endotracheal Tube Monitors Used: Standard Monitors Preoperative Comments:: 43 yo female for gall bladder removal. currently in the ED. had received acetaminophen @ ~04, ketorolac/ondansetron @ ~02. Sig PMHx: HTN (nifedipine, nebivolol), RA (hydroxychloroquine). never smoker, occ EtOH.
[2023-09-28] MEDS: Indocyanine green 25 MG VIAL 5 MG IVP (14:04)
[2023-09-28] MEDS: Normal Saline Flush 10 ML SYR ×2 (14:06→14:20)
[2023-09-28] MEDS: Lactated Ringers 1,000 ML 30 ML IV (14:20)
[2023-09-28] MEDS: ceFAZolin 2,000 MG in Normal Saline 100 ML 200 MG IVPB (15:00)
[2023-09-28] MEDS: Bupivacaine 0.25% Pres-Free 30 ML VIAL (15:29)
--- NOTE | 2023-09-28 16:30 | GB_PTH ---
PATIENT: Maddy Poon LOC: [id number]#:[id number] AGE/SX: 43/F ROOM: MS.205 RE09/28/[address]: Jose Luis Ames MD : 1980 BED: A DIS: 09/29/2023 SPEC #: [id number] RECD: 09/28/23 18:17 STATUS: [facility] REQ #: [id number] DANIEL: 09/28/23 16:[address]: Jose Luis Ames DEPT: Surgical Specimen RECD BY: Della Bar ENTERED: 09/28/23 18:18 SP TYPE: GB OTHR DR: Unknown,Unknown Tissues: 1 - GALLBLADDER Procedures: GROSS AND MICRO LEVEL 3 Comments: [id number]
--- NOTE | 2023-09-28 17:21 | ROE_ITS ---
Date of service: 09/28/23 Time of Service: 17:21 Operative Note Operative Note DATE OF PROCEDURE: 09/28/23 PRE-OP DIAGNOSIS: Acute cholecystitis POST-OP DIAGNOSIS: same PROCEDURE: Laparoscopic cholecystectomy SURGEON: Jose Luis Ames REPULPING SUPERVISOR: Eva Tinoco REPULPING SUPERVISOR: Vanessa Larsen ANESTHESIA TYPE: General LMA/ETT Refer to Anesthesia Record ESTIMATED BLOOD LOSS: 10 PATHOLOGY: other (Gallbladder) COMPLICATIONS: None Patient was transported to: PACU Patient's condition: stable Indications: Maddy is a 43-year-old woman with acute onset of abdominal pain. CT scan showed cholelithiasis, and ultrasound showed gallbladder wall thickening and pericholecystic fluid consistent with acute cholecystitis. Findings: Acute calculus cholecystitis. Procedure Description: After satisfactory induction of general anesthesia, I prepped and draped the abdomen in usual fashion. Next, I began with a periumbilical incision. I dissected down to the fascia and elevated it with Keyshawn clamps. I incised it s harply. Next, I passed a 12 mm operating port in the umbilical site. I secured it to the fascia with 0 Vicryl stitches. I then insufflated the peritoneal cavity. Next I inserted a 5 mm 30 degree scope and examined the underlying viscera. There was no evidence of injury created upon entry. I then placed the patient in some reverse Trendelenburg and left side down positioning. Then, with the assistance of the laparoscope, I used local anesthetic to anesthetize the midepigastric and 2 right upper quadrant port sites. Under the vision of the laparoscope, I passed 3 more 5 mm ports. I then grasped the gallbladder fundus and elevated cephalad. The body of the gallbladder was quite thickened, and edematous consistent with acute cholecystitis. The infundibulum was gently grasped and retracted slightly towards the patient's right side. There was quite a bit of inflammation here. With the assistance of indocyanine green, we began dissecting out the cystic duct. I worked in a lateral to medial fashion. The duct was isolated, but it appeared quite large for her size. Therefore, I continued the dissection back towards the gallbladder body. As the edema was taken down, it became evident that this was actually the common bile duct, with a very short cystic duct takeoff towards the gallbladder proper the division was gently dissected free, and the true cystic duct was carefully skeletonized. It was doubly clipped with great care taken to preserve a cuff of distal cystic duct: The common duct in order to minimize any trauma to the common bile duct proper. The cystic artery was immediately adjacent to this, and that was also doubly clipped and divided. I then used electrocautery to dissect the gallbladder off the gallbladder fossa. I passed the gallbladder into an Endo Catch bag and removed it by way of the umbilical site. I examined the surgical field. It was hemostatic. I then removed the 5 mm ports under the vision of the laparoscope. Finally, I removed the umbilical port site and closed the fascia with Vicryl stitches. Sites were irrigated, and the skin was closed with subcuticular stitches. Bandages were applied, patient was awakened from anesthesia, and transferred to the recovery unit.
--- NOTE | 2023-09-28 17:31 | W.ANESPOSTOP ---
Postoperative Evaluation Date, Time and Location Date Performed: 09/28/23 Time Performed: 17:31 Patient Location: PACU Vital Signs Most Recent Imported Vital Signs: Most Recent Vital Signs Temp Pulse Resp BP Pulse Ox 36.7 C 61 17 157/71 H 99 09/28/23 17:20 09/28/23 17:20 09/28/23 17:20 09/28/23 17:20 09/28/23 17:20 Pain Score Most Recent Pain Score: Most Recent Pain Score Pain Level 5 09/28/23 17:20 Assessment Mental Status: Awake (Alert & Oriented to Patient Baseline) Airway and Respiratory Function: Patent airway with normal (patient baseline) respiratory exam Cardiovascular Function: Hemodynamically Stable Hydration Status: Adequately Hydrated Nausea & Vomiting: Active Nausea or Vomiting Present Nausea and Vomiting Management: Nausea and vomiting active, being addressed with medication Pain: Pain is tolerable per patient Peripheral Nerve Block: Patient did not receive a nerve block
[2023-09-28] MEDS: Droperidol 5 MG/2 ML VIAL 0.625 MG IVP (17:35)
[2023-09-28] MEDS: traMADol 50 MG TAB PO (21:28)
--- NOTE | 2023-09-29 06:47 | W.PM.DS.N ---
Date of service: 09/29/23 Time of Service: 06:59 DS: Diagnosis Discharge Diagnosis (1) Cholecystitis: Status: Acute Discharge Plan Disposition Patient Disposition: Home Condition: Good Discharge Details Reason For Visit: Severe abd pain, two days of it. Admit Date/Time: 09/28/23 20:19 Admit Provider: Jose Luis Ames Attending Provider: Jose Luis Ames Primary Care Provider: Unknown,Unknown Hospital Course Hospital Course: Maddy is 43 years old. She came to the ER with acute onset of abdominal pain and was found to have cholecystitis. She underwent laparoscopic cholecystectomy, and was discharged the next morning. Home Meds and New Rx's Prescriptions: New tramadol 50 mg tablet 50 mg PO Q8H PRNQty: 12 0RF Rx Instructions: take one to two tablets by mouth up to every 8 hours if needed for severe pain Continued hydroxychloroquine [Plaquenil] 200 mg tablet 200 mg PO DAILY prednisone 5 mg tablet 5 mg PO DAILY zafirlukast 10 mg tablet 20 mg PO ONCE Rx Instructions: must be taken on empty stomach, at least 1 hr before or 2 hrs after a meal/food cetirizine [Zyrtec] 10 mg tablet 10 mg PO DAILY PRN nifedipine 60 mg Tablet Extended Release 24hr 60 mg PO DAILY nebivolol [Bystolic] 5 mg Tablet 5 mg PO DAILY Discharge Instructions Instructions: Laparoscopic Cholecystectomy (GEN) Additional Instructions: Maddy, I am so sorry that you found yourself dealing with gallstones. I really hope that you feel better soon. Expect the pain from the surgery to get a little better each day. You should be up and walking around. Even a brisk walk as your strength comes back will help move things along. I recommend alternating tylenol and ibuprofen around the clock for 48 hours. Add in the tramadol prescription if you need it. After 2 days just take meds as you need them. Bruising is very common so don't be alarmed by that. If the incisions turn red, please let me know. If you feel feverish or sick at all, please let me know. I am happy to make you an appointment in follow up if you like. Alternatively you can just keep me in the loop as to how things are going. Let us know if you need anything at all. 1. Resume all of your medications. 2. Use ice packs or heating pads on the incisions to help with pain. 3. Okay to use tylenol and ibuprofen over the counter, and the prescription tramadol if necessary. 4. Leave bandages in place for 24 hours, then remove. 5. Shower with warm soapy water. Pat dry. Use a bandaid if needed to protect your clothing. 6. No soaking or tub baths until I see you in the office. 7. No heavy lifting until I see you in the office. 8. Call the office (or go directly to the emergency room after hours) if you notice any of the following: Develop chills (warm to touch), or if you have a thermometer and your temperature is above 101 Difficulty breathing or difficultly swallowing Persistent vomiting Any bleeding ? exceeding one tablespoon 9. Call your physician if the site where your intravenous was started becomes red, swollen, painful, and warm to touch. Activity:: no heavy lifting Equipment/Supplies:: No Equipment Needed Diet:: As Tolerated DS: Summary Time Spent with Patient providing and/or coordinating discharge services: Less than 30 minutes Status at Discharge Functional status at discharge: independent ambulation Overall status at discharge: patient is progressing back to baseline Mental Status: mental status grossly normal Speech and Movement: speech and movement normal Mood: congruent mood Affect: normal affect Quality:SDOH Health Related Social Needs: No Data to Display Exam GI Other: abdomen soft and appropriately tender. Bandages clean Psych Mental Status: mental status grossly normal Speech and Movement: speech and movement normal Mood: congruent mood Affect: normal affect DS: Data Vitals/I&O Vitals and I&O: Vital Signs Temperature 100.2 F H 09/28/23 19:47 Temperature Source Tympanic 09/28/23 19:47 Pulse 66 09/28/23 22:08 Pulse Rhythm Regular 09/28/23 21:30 Respiratory Rate 18 09/28/23 22:08 Respiratory Effort Normal 09/28/23 21:30 Respiratory Depth Normal 09/28/23 21:30 Respiratory Pattern Normal 09/28/23 21:30 Blood Pressure 163/82 H 09/28/23 22:08 Blood Pressure Mean 94 09/28/23 03:18 Pulse Oximetry 98 09/28/23 22:08 Respiratory End-tidal CO2 39 09/28/23 17:20 Oxygen Delivery Method Room Air 09/28/23 22:08 Oxygen Flow Rate 0 09/28/23 22:08 Pain Level 5 09/28/23 21:28 Comment RN Notified 09/28/23 19:47 Intake & Output 09/28/23 09/28/23 09/29/23 11:59 23:59 11:59 Intake Total 1100 / 1807 707 / 1807 Output Total Balance 1100 / 1797 697 / 1797 Weight 135 lb 135 lb Intake: IV 1100 / 1807 707 / 1807 Output: Estimated Blood Loss Other: Emesis Description None PFSH All Active Problems Cholecystitis (Acute) Rheumatoid arthritis (Chronic) Seropositive CCP and RF Hypertension (Chronic) Osteoarthritis (Chronic) Rheumatoid arteritis (Acute) Family History Father Alcohol use disorder Heart disease Hypertension Mother Glaucoma Social History Smoking/Tobacco Use Status: Never Second Hand Exposure: No Smoking risk assessment performed?: Yes Alcohol Intake: current Alcohol Intake frequency: 0-2 drinks per day Substance use type: does not use Adopted: No Caregiver/Support person: No Foster care: No Household members: spouse and children Housing: house Number of Children: 3 Communication Needs: None Education Level: master's degree Do you need help understanding health information?: Rarely 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 Pets and animals: Yes (1) Pets and animals: dog(s) Sexually active: No Do you think of yourself as: straight/heterosexual Current gender identity: female What is your relationship status?: How often do you talk on the phone with friends or family?: three or more times per week How often do you get together with friends or relatives?: once per week Do you belong to any clubs or organized social groups?: no Panel score (0-1 are the most socially isolated patients): 2 What type of physical activity do you participate in: walking Duration: 30-45 minutes/day Frequency: 5-6 times per week Special chrystal needs: No Seatbelt use: always Helmet use: Yes Drive intox or ride w/intox automation driver: No Time Spent with Patient Time Spent with Patient: <45 minutes Time was spent: counseling the patient and care coordination
--- NOTE | 2023-09-29 08:43 | PDOC.CMIN ---
Date of service: 09/29/23 Time of Service: 08:43 Care Management Initial Assmt Initial Assessment REASON FOR HOSPITALIZATION:: Severe Abdominal pain PREVIOUS FUNCTIONAL STATUS/SOCIAL/FAMILY SUPPORTS:: Resides in [place], [place] with , [place]. Relocated from [place], [place]. ADVANCE DIRECTIVES:: None on file. Has patient been provided with info about the portal/API?: No Did the patient sign up for the portal?: No CODE STATUS:: Full Code INSURANCE COVERAGE / FINANCIAL ISSUES:: [employer] CURRENT HOME/COMMUNITY SERVICES/EQUIPMENT:: Care transferred from [facility] PRIMARY CARE PHYSICIAN:: Manuel Larry POTENTIAL DISCHARGE NEEDS:: New PCP appointment 10/02/23 PATIENT/FAMILY EDUCATION NEEDS:: Review discharge instructions, discuss Ask Me Three. ANTICIPATED BARRIERS TO DISCHARGE:: None identified TRANSPORTATION:: Via private vehicle PLAN:: Maddy will return home when ready per MD. She will follow up with her new PCP at [facility] and plan of care as prescribed. CM continues to follow. PFSH All Active Problems Cholecystitis (Acute) Rheumatoid arthritis (Chronic) Seropositive CCP and RF Hypertension (Chronic) Osteoarthritis (Chronic) Rheumatoid arteritis (Acute) Family History Father Alcohol use disorder Heart disease Hypertension Mother Glaucoma Social History Smoking/Tobacco Use Status: Never Second Hand Exposure: No Smoking risk assessment performed?: Yes Alcohol Intake: current Alcohol Intake frequency: 0-2 drinks per day Substance use type: does not use Adopted: No Caregiver/Support person: No Foster care: No Household members: spouse and children Housing: house Number of Children: 3 Communication Needs: None Education Level: master's degree Do you need help understanding health information?: Rarely 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 Pets and animals: Yes (1) Pets and animals: dog(s) Sexually active: No Do you think of yourself as: straight/heterosexual Current gender identity: female What is your relationship status?: How often do you talk on the phone with friends or family?: three or more times per week How often do you get together with friends or relatives?: once per week Do you belong to any clubs or organized social groups?: no Panel score (0-1 are the most socially isolated patients): 2 What type of physical activity do you participate in: walking Duration: 30-45 minutes/day Frequency: 5-6 times per week Special chrystal needs: No Seatbelt use: always Helmet use: Yes Drive intox or ride w/intox swing driver: No SDOH(Care Management) Screening Will the Patient Participate in the Screening?: Unable to obtain
== END 2023-09-29 09:14 | disposition home or self-care (01) ==
LOC: ER 10:37 → SUR 13:54 → DSU 13:57 → SUR 13:59 → MS 17:29 → SUR 20:39 → MS 20:39
PROVIDERS: Student in an Organized Health Care Education/Training Program; Admitting Provider Surgery; Emergency Provider Emergency Medicine; PCP Family Medicine; Visit Provider Surgery
PROC: 0FT44ZZ Resection of Gallbladder, Percutaneous Endoscopic Approach (ICD-10-PCS; CPT 47562; principal; 2023-09-28 14:00)
DX: K80.10 Calculus of gallbladder with chronic cholecystitis without obstruction (principal); Z79.899 Other long term (current) drug therapy; M06.9 Rheumatoid arthritis, unspecified; I10 Essential (primary) hypertension; I77.6 Arteritis, unspecified; M19.90 Unspecified osteoarthritis, unspecified site
CPT/HCPCS: 47562; 80053; 83690; 93005; 96361; 96365; 96366; 96375; 99222; 99239; 99285; 74176; 76705; 81003; 84484; 85025; 85379; 88304; 93010; G0378; J0131; J0665; J0690; J1100; J1790; J1885; J2001; J2405; J2704; J3475

== ENCOUNTER → 2023-11-06 08:44 | Outpatient (CLI) | payer BC, OTHER, SELFPAY ==
--- NOTE | 2023-11-06 09:18 | DI.RAD_ITS ---
Exam(s) XR KNEE LT 4V+ EXAM: XR KNEE LT 4V+ CLINICAL HISTORY: Pain after a fall, LT KNEE PAIN, M25.562. TECHNIQUE: 2D digital imaging was performed. Three views. COMPARISON: No exams were available for comparison FINDINGS: BONES: No acute fracture is present. No bony destructive lesion is seen. Small enthesophyte at quadr iceps insertion on the patella. JOINTS: The knee is normally aligned. No joint effusion is seen. The joint spaces are maintained. No significant periarticular spurring. SOFT TISSUE: Normal. IMPRESSION: No acute abnormality. DATA REPOSITORY: RADIATION DOSE DELIVERED:
== END ==
PROVIDERS: PCP Family Medicine; Visit Provider Family Medicine
DX: M25.562 Pain in left knee (principal)
CPT/HCPCS: 73564

== ENCOUNTER → 2023-11-28 04:23 | Outpatient (CLI) | payer BC, SELFPAY ==
--- NOTE | 2023-11-28 13:00 | DI.MRI_ITS ---
Exam(s) MR LOWER JOINT LT WO EXAM: MR LOWER JOINT LT WO CLINICAL HISTORY: Persistent pain after injury on 10/11,S89.90xa TECHNIQUE: Multiplanar multisequence MRI of the knee was performed. COMPARISON: CR XR KNEE LT 4V+ from 11/06/2023 FINDINGS: EFFUSION: There is a moderate size knee joint effusion. There is no Ricci cyst in the popliteal katerina a. No loose intra-articular bodies. MARROW:There is bone contusion signal in the lateral tibial plateau as well as prominent subarticular bone edema in the outer half of the lateral femoral condyle. No abnormal intraosseous signal in the medial compartment nor in the patella. There are no significant osseous lesions. PATELLOFEMORAL COMPARTMENT: The quadriceps tendon is intact. The patellar ligament is intact. There is no significant thinning of the retropatellar cartilage. No evidence of fissure nor signific ant chondral defect. No osteochondral defect at this level.There is no intraosseous signal to sugges t recent patellar dislocation. There are no patellar retinacular tears. CRUCIATE LIGAMENTS: There is abnormal signal throughout the anterior cruciate ligament consistent wit h significant tearing of this structure. The the center of tearing appears to be at the junction of the mid and upper 3rd of this structure.The posterior cruciate ligament is intact. MEDIAL COMPARTMENT/MEDIAL MENISCUS: There is some signal abnormality in the posterior horn of the med ial meniscus but this does not violate an articular surface. The meniscal root is intact. There is no meniscal extrusion. There is mild cartilage thinning over the weight-bearing surface of medial co ndyle. No subarticular edema noted. No osteochondral defects. No osteophytes.. MEDIAL COLLATERAL LIGAMENT: Intact LATERAL COMPARTMENT/LATERAL MENISCUS: There is no evidence of lateral meniscal tear.Mild cartilage th inning noted over the outer 3rd of the lateral femoral condyle with abundant subarticular edema. The re is no formed osteochondral defect.No osteophytes. ILIOTIBIAL BAND: Intact LATERAL COLLATERAL LIGAMENT COMPLEX: The fibular collateral ligament is intact. The biceps femoris t endon is intact.Popliteus tendon exhibits some fluid the tendon sheath but no tendon tear. IMPRESSION: 1. The main finding here is tearing of the anterior cruciate ligament. There is signal abnormality t hroughout the ACL. The epicenter of tearing appears to be at the junction of the mid and upper third s of this structure. The posterior cruciate ligament is intact 2. There are no meniscal tears nor meniscal displacement. 3. No collateral ligament tears 4. Bone contusion signal evident in the lateral compartment, both in the lateral tibial plateau and s ubarticular lateral femoral condyle. There is no bone contusion signal in the medial compartment. 5. moderate size joint effusion. No Ricci cyst. No obvious loose intra-articular bodies. DATA REPOSITORY:
== END ==
PROVIDERS: PCP Family Medicine; Visit Provider Family Medicine
DX: S89.82XA Other specified injuries of left lower leg, initial encounter; M25.562 Pain in left knee; M25.462 Effusion, left knee; S83.512A Sprain of anterior cruciate ligament of left knee, initial encounter
CPT/HCPCS: 73721

== ENCOUNTER 2024-03-06 09:42 | Day surgery (SDC) | payer BC, SELFPAY ==
[2024-03-06] VITALS (17 sets, daily range): BP systolic 115–151; BP diastolic 67–92; PULSE 55–78; RESP 10–16; TEMP 36.2–36.6; O2SAT 97–100; BMI 23.8
--- NOTE | 2024-03-06 07:22 | W.PM.DSUDISC ---
Date of service: 03/06/24 Time of Service: 15:00 Discharge Plan Disposition Patient Disposition: Home Condition: Stable Discharge Details Attending Provider: Jace Powell Primary Care Provider: Manuel Larry Home Meds and New Rx's Prescriptions: New aspirin 81 mg tablet,delayed release (DR/EC) 81 mg PO DAILY 14 Days Qty: 14 0RF naproxen 250 mg tablet 250 - 500 mg PO BID PRN (Reason: Moderate pain) Qty: 40 0RF oxycodone 5 mg tablet 5 - 10 mg PO Q4H PRN (Reason: Moderate to severe pain) Qty: 18 0RF Continued Lumigan 0.01 % drops 1 drp ophthalmic (eye) DAILY Rx Instructions: Instill one drop OU daily cetirizine [Zyrtec] 10 mg tablet 10 mg PO DAILY PRN hydroxychloroquine [Plaquenil] 200 mg tablet 200 mg PO DAILY Qty: 90 3RF zafirlukast 10 mg tablet 20 mg PO HS Rx Instructions: must be taken on empty stomach, at least 1 hr before or 2 hrs after a meal/food nifedipine 60 mg tablet extended release 24hr 60 mg PO HS prednisone 2.5 mg tablet 2.5 mg PO HS nebivolol [Bystolic] 5 mg tablet 5 mg PO HS Discharge Instructions Additional Instructions: Surgery: Left knee arthroscopy with ACL reconstruction (allograft) and synovial biopsy Activity: Weightbearing as tolerated. No brace or crutches needed as soon as comfortable and stable on knee. Restore full knee extension as soon as possible. Perform early quad sets/quadriceps isometrics. Gradually increase flexion to full. Recommend elevation to minimize swelling discomfort. Encourage ankle pumps and wiggle toes to improve circulation. A physical therapy prescription will be sent electronically to begin in 2 to 3 weeks. Avoid sports activities for about 9 months. Prescriptions: Aspirin 81 mg take 1 daily to prevent a blood clot for 14 days, starting tomorrow morning Naproxen 250 mg take 1-2 every 12 hours with a meal as needed for moderate pain Oxycodone 5 mg take 1-2 every 4-6 hours as needed for severe pain You may use [id number]-[id number] Tylenol (acetaminophen) as needed for mild pain. These pain medications may be taken all at once or in different combinations as needed. Also, recommend Colace (docusate) as a stool softener as surgery and pain medicine cause constipation. You may try [id number] diphenhydramine (Benadryl) 25-50 mg nightly as a sleep aid Dressings: Leave dressing in place for 3 days. May then remove and leave open to air or cover incisions with Band-Aids. Leave the sticky Steri-Strips in place until they fall off or remove them after you shower. May shower after 5 days. Follow-up: 10-[address] Powell You may take off the leg compression stockings this evening at home. You may also leave them on a few days longer if you have a history of leg swelling or edema. Let us know right away if you develop any redness, drainage, fevers, chest pain, or trouble breathing. Do not drink alcohol or drive for at least 24 hours after anesthesia. Please call the office during business hours with any questions or concerns. Discharge Orders Discharge Orders: Discharge Order (Routine); Ordered 03/06/24 Ordered By: Sukumar Milner DS: Diagnosis Discharge Diagnosis (1) Left ACL tear: Status: Acute (2) Rheumatoid arthritis: Status: Chronic
[2024-03-06] MEDS: Lactated Ringers 1,000 ML 30 ML IV (10:40)
--- NOTE | 2024-03-06 10:55 | W.ANESPRE ---
General Info Date of Service Date Performed: 03/06/24 Height: 5 ft 3 in Weight: 61.1 kg Body Mass Index (BMI): 23.8 Surgical Procedure: Operation Date: 03/06/24 11:55 Proposed Procedure Side Surgeon p Knee ACL Reconstruction, Allograft Left Jace Powell MD Meds Allergies and Home Medications Allergies Allergy/AdvReac Type Severity Reaction Status Date / Time No Known Allergies Allergy Verified 03/06/24 10:27 Home Medication ?Medication ?Instructions ?Recorded cetirizine 10 mg tablet (Zyrtec) 10 mg PO DAILY PRN 09/17/23 bimatoprost 0.01 % eye drops 1 drp ophthalmic (eye) DAILY 10/02/23 (Lumigan) hydroxychloroquine 200 mg tablet 200 mg PO DAILY #90 tabs 10/02/23 (Plaquenil) nebivolol 5 mg tablet (Bystolic) 5 mg PO HS 03/05/24 nifedipine 60 mg tablet,extended 60 mg PO HS 03/05/24 release 24 hr prednisone 2.5 mg tablet 2.5 mg PO HS 03/05/24 zafirlukast 10 mg tablet 20 mg PO HS 03/05/24 aspirin 81 mg tablet,delayed 81 mg PO DAILY Prevent blood clot 03/06/24 release 14 days #14 tabs naproxen 250 mg tablet 250 - 500 mg (1 - 2 x 250 mg) PO 03/06/24 BID PRN Moderate pain #40 tabs oxycodone 5 mg tablet 5 - 10 mg (1 - 2 x 5 mg) PO Q4H 03/06/24 PRN Moderate to severe pain #18 tabs Current Visit Medications: Current Medications Generic Name Dose Route Start Last Admin Trade Name Freq PRN Reason Stop Dose Admin Ringer's Solution 1,000 mls @ 30 mls/hr 03/06/24 06:00 03/06/24 10:40 IV 03/06/24 23:59 30 mls/hr INFUSION YECENIA Administration Cefazolin Sodium/Dextrose 2 gm in 50 mls @ 100 mls/hr 03/06/24 06:00 Ancef Duplex IVPB 03/06/24 23:59 PREOP YECENIA Tranexamic Acid/Sodium Chloride 1,000 mg in 100 mls @ 600 mls/hr 03/06/24 06:00 IVPB 03/06/24 23:59 PREOP YECENIA IV Miscellaneous Supplies 1 each 03/06/24 06:00 Iv Access IV 03/06/24 23:59 DIRECTED YECENIA Oxycodone HCl 0 mg 03/06/24 07:22 Oxycodone 5 Mg Tab PO 04/05/24 07:21 Q3H PRN PRN Pain Sodium Chloride 0 ml 03/06/24 06:00 Normal Saline Flush 10 Ml Syr IV 03/06/24 23:59 PRN PRN Sodium Chloride 0 ml 03/06/24 06:00 Normal Saline 10 Ml Vial IJ 03/06/24 23:59 DIRECTED PRN Sterile Water 0 ml 03/06/24 06:00 Water,Injection,Sterile 10 Ml Vial IJ 03/06/24 23:59 DIRECTED PRN PFSH Active Problems Active Problems: Problem Status Onset Code Left ACL tear Acute 10/18/23 S83.512A Family history of cerebral aneurysm Acute Z82.49 Seasonal allergies Acute J30.2 Rheumatoid arthritis Chronic M06.9 Hypertension Chronic I10 Osteoarthritis Chronic M19.90 Surgical History Surgical History S/P laparoscopic cholecystectomy (~09/2023) Tobacco Smoking/Tobacco Use Status: Never Second hand exposure: No Alcohol Alcohol Intake: current Alcohol intake frequency: a few times a week Substance Use Substance use: Occasionally Substance use type: marijuana Vital Signs and Lab Results Vital Signs Most Recent Vital Signs in EMR: Most Recent Vital Signs Temp Pulse Resp BP Pulse Ox 36.3 C L 58 L 16 124/70 98 03/06/24 10:23 03/06/24 10:23 03/06/24 10:23 03/06/24 10:23 03/06/24 10:23 Point of Care Results Point of Care Results: POC- Test(urine) Negative 03/06/24 10:50 Lab Results Blood Type / Crossmatch: No Data to Display Complete Blood Count: No Data to Display Complete Metabolic Panel: No Data to Display Liver Function Panel: No Data to Display Coagulation Panel: No Data to Display Cardiac Panel: No Data to Display Arterial Blood Gas: No Data to Display Venous Blood Gas: No Data to Display Pancreas Panel: No Data to Display Thyroid Panel: No Data to Display Infectious Disease: No Data to Display Blood Cultures: No Data to Display Toxicology Panel: No Data to Display Panel: No Data to Display Imaging and Studies Imaging and Studies Study information below may be from another EMR and interpreted by another provider. Please see original notes in EMR for more complete details. EKG Summary: 10/13: sinus balta. Anesthesia Assessment and Plan Anesthesia History Personal History: No History of Anesthesia Complications Family History: No Family History of Anesthesia Complications Exercise Tolerance Exercise Tolerance: Metabolic Equivalents>4 Cardiac & Pulmonary Exam Cardiac Exam: Normal S1/S2 Heart Sounds Pulmonary Exam: Clear Bilateral Breath Sounds Implantable Cardiac Device Does patient have a Pacemaker or an ICD?: No Airway Exam Known Difficult Airway: No Mallampati Class: 3 Mouth Opening: Narrow (< 3cm) Thyromental Distance: Greater than 3 cm Neck Range of Motion: Full ROM Neck Circumference: Normal Teeth Condition: Normal Dentition ASA Classification ASA Score: ASA 2 Emergency Case?: No NPO Status NPO Status: NPO Clears >2 hours, Solids >8 hours Status Status: Negative HCG Anesthesia Plan Resuscitation Status: Full Code Anesthesia Technique: General Anesthesia Airway Planned: Endotracheal Tube Pain Management: Surgeon and patient request nerve block Monitors Used: Standard Monitors Preoperative Comments:: 43 yo female for ACL Sig PMHx: HTN (well controlled - 120/80 at home. nifedipine, nebivolol), RA (hydroxychloroquine). never smoker, occ EtOH. Previous Anes: - deon gregorialidia normande 3 grade 1, easy mask. Stated she had to spend the night due to sleepiness. Ran on prop/dexmed (20 mcg total) with intermittent ketamine, and also mag.
[2024-03-06] MEDS: ceFAZolin 2 GM/50 ML BAG IVPB (12:52)
[2024-03-06] MEDS: TRANEXAMIC ACID/SOD. CHL. 1,000 MG/100 ML BAG 600 MG IVPB (13:00)
--- NOTE | 2024-03-06 13:20 | SYNOVIUM_PTH ---
PATIENT: Maddy Poon LOC: [facility] U#:[id number] AGE/SX: 44/F ROOM: RE03/06/[address]: Jace Powell MD : [id number] BED: DIS: 03/06/2024 SPEC #: [id number] RECD: 03/06/24 18:39 STATUS: NATHALIE REMaxine #: [id number] DANIEL: 03/06/24 13:[address]: Jace Powell DEPT: Surgical Specimen RECD BY: Della Bar ENTERED: 03/06/24 18:39 SP TYPE: SYNOVIUM OTHR DR: Manuel Larry DO Tissues: 1 - SYNOVIUM/IAL Procedures: GROSS AND MICRO LEVEL 4 Comments: [id number]
--- NOTE | 2024-03-06 13:20 | W.ANESNERVE ---
Nerve Block Single Injection Procedure Date and Time Date Performed: 03/06/24 Procedure Start: 11:39 Location Where Procedure Performed Procedure Location: Day Surgery Unit Reason Performed: Postoperative Analgesia Requesting Provider: Jace Powell Timeout Performed Timeout Performed: Yes Monitoring Used ECG, Blood Pressure, SpO2 and See EMR for corresponding vital signs Sterility Sterility: Hand Hygiene, Surgical Cap, Surgical Mask, Sterile Gloves and Chlorhexidine Sedation Given During Procedure Sedation Given (Indicate Dose Given): Versed IV Dose:: 2mg Patient Mental Status Patient Mental Status: Awake Nerve Block 1st Nerve Block: Laterality: Left Block Type: Adductor Canal Ultrasound Image Saved?: Yes Needle / Catheter Used: 100mm SonoPlex II Local Anesthetic Bolus (Indicate Dose Given): Lidocaine used for local infiltration of skin, Injected in 3-5ml increments after negative blood aspiration, Bupivacaine 0.25% Dose:: 10mL and Exparel Dose:: 10mL Additives (Indicate Dose Given): None Ultrasound: Sterile probe cover and gel used Nerve Stimulator: Supplement to Ultrasound use and No twitch or parasthesia noted < 0.5 mA Paresthesia: None Procedure Tolerated: No Complications Procedure Outcome: Successful Procedure Comment: Benito Marie CRNA assist Performed By: Coni Holman
[2024-03-06] MEDS: Bupivacaine 0.25% Pres-Free W/EPI 30 ML VIAL (14:00)
[2024-03-06] MEDS: EPINEPHrine 10 MG/10 ML ML (15:02)
--- NOTE | 2024-03-06 15:39 | W.ANESPOSTOP ---
Postoperative Evaluation Date, Time and Location Date Performed: 03/06/24 Time Performed: 15:40 Patient Location: PACU Vital Signs Most Recent Imported Vital Signs: Most Recent Vital Signs Temp Pulse Resp BP Pulse Ox 36.3 C L 67 11 L 133/81 100 03/06/24 15:18 03/06/24 15:31 03/06/24 15:31 03/06/24 15:31 03/06/24 15:31 Pain Score Most Recent Pain Score: Most Recent Pain Score Pain Level 4 03/06/24 15:28 Assessment Mental Status: Awake (Alert & Oriented to Patient Baseline) Airway and Respiratory Function: Patent airway with normal (patient baseline) respiratory exam Cardiovascular Function: Hemodynamically Stable Hydration Status: Adequately Hydrated Nausea & Vomiting: No Nausea or Vomiting Pain: Pain is tolerable per patient Peripheral Nerve Block: Patient did not receive a nerve block
--- NOTE | 2024-03-06 16:01 | ROE_ITS ---
Date of service: 03/06/24 Time of Service: 13:00 Operative Note Operative Note DATE OF PROCEDURE: 03/06/24 PRE-OP DIAGNOSIS: Left knee: 1. ACL rupture 2. Rheumatoid arthritis PROCEDURE: Left knee: 1. ACL reconstruction, CPT #79990: Quadriceps allograft 2. Synovial biopsy, CPT #94324 SURGEON: Jace Powell OPERATIONS MANAGER ASSISTANT: Sukumar Milner ANESTHESIA TYPE: Local By Surgeon, General LMA/ETT and Primary Nerve Block Refer to Anesthesia Record ESTIMATED BLOOD LOSS: 5 PATHOLOGY: other (Synovial samples for rheumatoid evaluation) TOURNIQUET TIME: 0 COMPLICATIONS: None Patient was transported to: PACU Patient's condition: stable Implants: Arthrex ACL TightRope II RT and ABS with vs 14mm round cortical button QuadLink pre-sutured quadriceps allograft: 10 x70 mm] Indications: Please see complete medical record for details. Findings: Exam under anesthesia: Full range of motion, positive Collette, negative pivot shift. Stable varus and valgus. Arthroscopic findings: Only mild synovitis, largely intact articular cartilage, intact medial lateral menisci. High-grade proximal to mid substance ACL rupture with some scarred around the PCL and deep in the notch. Procedure Description: In the operating room, general anesthesia was induced. The patient was positioned supine on the operating room table. All bony prominences were well- padded. Preoperative antibiotics were administered. The knee was prepped and draped in the usual sterile fashion. The correct patient, procedure, and side of the procedure were all verified prior to incision. Exam under anesthesia was performed. Local anesthetic containing epinephrine was infiltrated about the planned anteromedial, anterolateral, lateral distal femoral, and pretibial surgery sites. The standard high and tight anterolateral and anteromedial portals were established and a complete diagnostic arthroscopy was performed with relevant findings detailed above. A passport cannula was inserted in both the anteromedial and anterolateral portals. The pituitary rongeur was used to obtain synovial biopsy samples from the suprapatellar and anterior medial areas of the knee where there was some redundant synovium. There was no overly remarkable synovitis. In the intercondylar area, the ACL remnant was removed leaving enough footprint on the femur and tibia to localize anatomic socket placement. A small notchplasty was performed to allow proper visualization of the back wall. The graft was measured and prepared on the back table. The TightRope II BTB and TightRope II ABS adjustable-loop cortical suspensory fixation implants were loaded on QuadLink pre-sutured quadriceps allograft. The femoral and tibial ends each measured 10 mm. The graft was marked at 20 mm from each end. On the ABS side, the tensioning sutures were marked and a shuttle suture was added. The graft was manually tensioned and the construct did not demonstrate any elongation. The graft was then compressed in a graft tube and covered with vancomycin soaked sponges. The femoral guide was then placed through the anterolateral portal carefully targeting the appropriate anatomic ACL origin. The outer 9 mm diameter of the guide was positioned anatomically with appropriate space between the proximal and posterior articular margins. On the lateral thigh, drill guide position and angle adjusted to about 60 degree angle to the longitudinal axis of the femur in the coronal plane and 20 degree angle to the trans-epicondylar axis in the axial plane to create the most optimal femoral socket. Knife and snap were used to open the skin and IT band and placed the drill guide on bone while maintaining appropriate position on the lateral wall. The tunnel length was noted to be used for marking and passing the femoral button. The flip cutter was then drilled to the appropriate location. The drill guide malleted 7 mm into the cortex. The remainder of the targeting guide removed. The FlipCutter was deployed to 10 mm and retrograde reaming done to a depth of 25 mm. Bony debris was removed with the shaver. The flip cutter was then closed, withdrawn, and a FiberStick used to pass a #2 FiberWire shuttle stitch, which was withdrawn out the anterolateral portal. The tibial guide was then used to target the anatomic ACL insertion through the anteromedial portal. The drill angle adjusted to 57.5 degrees and a pretibial incision made. The drill guide was placed on bone, tunnel length noted, and the flip cutter drilled to the appropriate location. The drill guide malleted 7 mm into the cortex. The remainder of the targeting guide removed. The FlipCutter was deployed to 10mm and retrograde reaming done to a depth of 35 mm. Bony debris was removed with the shaver. The tibial bone was rather soft. The flip cutter was then closed, withdrawn, and a FiberStick used to pass a #2 FiberWire shuttle stitch, which was withdrawn out the anteromedial portal. The mechanical shaver was used to remove bone debris as well as chamfer and remove soft tissue from the edges of the sockets. With the shaver the anterior tibial bone was evaluated and somewhat readily enlarged from the flip cutter drill to the 5 mm shaver size due to the soft bone in this area. Debris was removed from the now mostly Tylenol. A femoral shuttle sutures were withdrawn out the anterior medial portal. The PassPort was removed. This portal dilated to accommodate the graft size. The graft was brought over to the knee and the femoral sutures shuttled out the lateral thigh and advanced until the button was near the far cortex. Under ar throscopic visualization with the knee slightly hyperflexed, and the button was then passed and flipped on the far cortex. Counter traction was then maintained on the tibial side of the graft while it was carefully advanced into the knee and then about 15 mm into the femoral socket. The tibial sutures were then shuttled through the tibial tunnel and passing stitch removed while carefully noting the tensioning stitches. The graft was then dunked about 15 mm into the tibial socket. The larger 14 mm round ABS button was selected due to the enlarged cortical hole and creation of a nearly full tunnel then loaded to the ABS loop and tension sutures used to bring the cortical button down to bone. The button sat nicely on the bone. The graft was advanced and then provisionally tensioned on both the femoral and tibial sides. The knee was then cycled 22 times, tensioning rechecked, and final tightening done with the knee in full extension with a moderate reverse Collette maintained. The tibial button remained in place on the anterior medial tibial cortex without problem. The graft position and tension were appropriate. There was no impingement in full extension. Collette exam was stable. Femoral passing sutures were removed. Backup knots were then tied on both sides and suture tails cut. The knee and all portals were copiously irrigated and then knee drained of arthroscopic fluid. 3-0 Monocryl was used to close the portals and small incisions in a buried interrupted fashion. Mastisol, Steri-Strips, Xeroform, 4 x 4 gauze, and sterile soft roll was applied. The extremity was wrapped gently with an Len bandage. A soft knee immobilizer placed. The patient awoke from anesthesia without complication and was transferred to the recovery room in a stable condition.
[2024-03-06] MEDS: oxyCODONE 5 MG TAB PO (16:22)
== END 2024-03-06 17:30 | disposition home or self-care (01) ==
LOC: SUR 09:42
PROVIDERS: PCP Family Medicine; Visit Provider Student in an Organized Health Care Education/Training Program
PROC: (CPT 29888; principal; 2024-03-06 11:45)
DX: S83.512A Sprain of anterior cruciate ligament of left knee, initial encounter (principal); I10 Essential (primary) hypertension; M65.9 Synovitis and tenosynovitis, unspecified; X58.XXXA Exposure to other specified factors, initial encounter
CPT/HCPCS: 29888; 76942; 81025; 88305; C9290; J0131; J0665; J0690; J1100; J1805; J1885; J2001; J2250; J2405; J2598; J2704; J3370

== ENCOUNTER 2024-07-01 13:25 | Outpatient (CLI) | payer BC, SELFPAY ==
--- NOTE | 2024-07-01 13:10 | DI.MAMMO_ITS ---
Exam(s) MAMMO SCREENING EXAM: MAMMO SCREENING CLINICAL HISTORY: screening. TECHNIQUE: Bilateral full field digital CC and MLO mammographic images were obtained with 3D tomosyn thesis and utilizing computer aided detection (CAD). COMPARISON: Prior outside mammogram of 07/04/2023 was reviewed. FINDINGS: Fibroglandular tissue pattern is again noted be quite dense, this somewhat decreasing the sensitivity of the mammogram for finding hidden underlying lesions. There are no CAD designations. In the left breast on the 3D cc view there is a round nodular density measuring 7 x 7 mm located 4 cm in from the nipple, slightly medial of center. Spot compression CC view recommended. In the right breast on the 3D cc view there is an asymmetric density-possible round nodule measuring 8 mm diameter located 5 cm in from the nipple on the CC view, slightly medial of center. Spot compre ssion CCview recommended. There are no malignant-appearing microcalcification groups in either breast. There is no significant architectural distortion or skin thickening-traction. IMPRESSION: Dense bilateral fibroglandular tissue. Bilateral nodules as described above.. Bilateral spot compressionCC views are recommended as well as bilateral complete breast ultrasound. BI-RADS Category 0 - Incomplete: Need additional imaging evaluation Breast Density - Category C - Heterogeneously dense Breast density Category C or D implies that the patient has dense breast tissue. Dense breast tissue can make it harder to find cancer on a mammogram. Dense breast tissue is also associated with an incr eased risk of breast cancer. This information about the result of the mammogram report was provided to the patient to raise their awareness. Use this report when you speak with the patient about their risks for breast cancer, which includes their family history. At that time, you may recommend additional screening tests (Ultrasoun d or MRI) as these tests may add significant information. A negative radiographic report should not delay biopsy if a dominant or clinically suspicious mass is present. Up to ten percent of cancers are not identified on mammography. A negative report may reinforce clinical impression. Adenosis and dense breasts may obscure an underlying neoplasm. False positive reports average 6 to 10%. Patient will receive a letter notifying them of these results.
== END 2024-07-01 13:45 ==
LOC: DI 13:26
PROVIDERS: PCP Family Medicine; Visit Provider Obstetrics & Gynecology
DX: Z12.31 Encounter for screening mammogram for malignant neoplasm of breast (principal); R92.323 Mammographic fibroglandular density, bilateral breasts; R92.333 Mammographic heterogeneous density, bilateral breasts
CPT/HCPCS: 77063; 77067

== ENCOUNTER 2024-12-09 15:51 | Outpatient (REF) | payer BC, SELFPAY ==
[2024-12-09 19:05] LABS: ESR 10 mm/hr (0-20)
[2024-12-09 19:06] LABS: Abs Immature Grans 0.01 10^3/uL (0.0-0.06); Absolute Basophil Count 0.04 10^3/uL (0.0-0.2); Absolute Eosinophil Count 0.08 10^3/uL (0.0-0.7); Absolute Lymphocyte Count 1.59 10^3/uL (1.2-3.4); Absolute Monocyte Count 0.65 10^3/uL (0.1-0.8); Absolute Neutrophil Count 3.97 10^3/uL (1.2-6.7); Basophils % 0.6 %; Eosinophils % 1.3 %; HCT 35.1 % (36.0-46.0); HGB 11.1 g/dL (11.2-15.7); Immature Grans % 0.2 %; Lymphocytes % 25.1 %; MCH 25.9 pg (27.0-33.0); MCHC 31.6 % (32.0-36.0); MCV 82 fL (80-95); MPV 9.9 fL (8.0-11.0); Monocytes % 10.3 %; Neutrophils % 62.5 %; Platelet Count 408 10^3/uL (130-400); RBC 4.29 10^6/uL (3.93-5.22); RDW-SD 44.8 fL; WBC 6.34 10^3/uL (4.4-10.8)
[2024-12-09 19:27] LABS: Hemoglobin A1C 5.2 % (<5.7)
[2024-12-09 19:30] LABS: ALT 19 U/L (14-59); AST 12 U/L (15-37); Alkaline Phosphatase 85 U/L (46-116); Anion Gap 6.1 mmol/L (3-11); BUN 9 mg/dL (7-18); Bilirubin, Total 0.3 mg/dL (0.2-1.0); CO2 25.9 mmol/L (21.0-32.0); CREATININE 0.7 mg/dL (0.55-1.02); Calcium 9.2 mg/dL (8.5-10.1); Chloride 105 mmol/L (98-107); Estimated GFR 108.62 (mL/min/1.73m2); Glucose 96 mg/dL (74-106); Potassium 4.2 mmol/L (3.5-5.1); Sodium 137 mmol/L (136-145); TSH 1.07 uIU/mL (0.36-3.74); Total Protein 7.8 g/dL (6.4-8.2)
[2024-12-09 19:32] LABS: C-Reactive Protein < 0.50 mg/dL (<or=0.5)
[2024-12-10 17:36] LABS: Rheumatoid Factor 26.7 IU/mL (<12.0)
[2024-12-11 09:54] LABS: Cyclic Citrullinated Peptide >200.0 U/mL (<5.0)
== END 2024-12-09 15:52 | disposition home or self-care (01) ==
LOC: NCHCN 15:51
PROVIDERS: Visit Provider Family Medicine
DX: Z79.52 Long term (current) use of systemic steroids (principal)
CPT/HCPCS: 80053; 85652; 86200; 83036; 84443; 85025; 86140; 86431

== ENCOUNTER 2025-01-01 01:12 | Outpatient (CLI) | payer BC, SELFPAY ==
--- NOTE | 2025-01-01 | DI.US_ITS ---
Exam(s) US BREAST RT LIMITED US BREAST LT LIMITED MG MAMMO SCREEN CALL BACK BI EXAM: MG MAMMO SCREEN CALL BACK BI and U/S breast bilateral limited CLINICAL HISTORY: Lt: 7 x 7 mm round nodular density 4 cm from nipple, slightly medial of ctr. TECHNIQUE: Craniocaudal and mediolateral oblique Full Field Digital Mammography views of the bilater al breast with Computer Aided Diagnosis followed by Tomosynthesis and bilateral limited breast ultras ound. COMPARISON: Comparison is made with prior examinations. FINDINGS: Mammography/Tomosynthesis: Masses/Architectural Distortion: In the left breast, the area of concern does not persist on the shea tional views. In the right breast, there is a well-circumscribed 7 mm nodule in the posterior medial right breast. It appears to lie in the 12-3 o'clock position. There are no suspicious areas of arc hitectural distortion present. Microcalcifictions: No suspicious pleomorphic-type are seen. Skin Thickening/Nipple Retraction: None. Limited bilateral breast US: Echotexture: Normal appearance of the glandular tissue. Shadowing: There is a calcifications seen 1 cm from the nipple at the 6 o'clock position in the left breast corresponding to a benign-appearing calcification in the left breast on the mammogram. Cyst: The right breast, at 6 cm from the nipple, there is a 1 cm cyst present. It does not appear to correspond to the mammographic finding. Solid lesions: There is a well-circumscribed ovoid radially oriented 1.1 cm lesion at the 7 o'clock p osition of the left breast 2 cm from the nipple. It does appear to have a faint echogenic central ar ea suggesting an intraparenchymal lymph node. No suspicious characteristics are seen. No suspicious lesions are seen in the left breast. Ductal dilation: None. IMPRESSION: 1. No deaf in evidence of malignancy is noted. 2. A six-month follow-up right mammogram is requested for re-evaluation. Yearly mammography is recom mended on the left breast. 3. The findings were discussed with the patient on the date of the examination. BI-RADS Category 3 - 6 month - Probably Benign Finding: Recommend follow-up imaging in 6 months Breast Density - Category C - The breast are heterogeneously dense, which may obscure small masses. Breast density Category C or D implies that the patient has dense breast tissue. Dense breast tissue can make it harder to find cancer on a mammogram. Dense breast tissue is also associated with an incr eased risk of breast cancer. This information about the result of the mammogram report was provided to the patient to raise their awareness. Use this report when you speak with the patient about their risks for breast cancer, which includes their family history. At that time, you may recommend additional screening tests (Ultrasoun d or MRI) as these tests may add significant information. A negative radiographic report should not delay biopsy if a dominant or clinically suspicious mass is present. Up to ten percent of cancers are not identified on mammography. A negative report may reinforce clinical impression. Adenosis and dense breasts may obscure an underlying neoplasm. False positive reports average 6 to 10%. Patient will receive a letter notifying them of these results.
== END 2025-01-01 01:32 ==
PROVIDERS: PCP Family Medicine; Visit Provider Obstetrics & Gynecology
DX: Z12.31 Encounter for screening mammogram for malignant neoplasm of breast (principal); R92.333 Mammographic heterogeneous density, bilateral breasts; D24.1 Benign neoplasm of right breast; D24.2 Benign neoplasm of left breast
CPT/HCPCS: 76642; 77063; 77067

== ENCOUNTER → 2025-07-07 02:03 | Outpatient (CLI) | payer BC, SELFPAY ==
--- NOTE | 2025-07-07 | DI.US_ITS ---
Exam(s) US BREAST RT LIMITED MG MAMMO DIAGNOSTIC BI US BREAST LT LIMITED EXAM: MG MAMMO DIAGNOSTIC BI CLINICAL HISTORY: 6 mo f/u right and screening lt,h/o abnl rt mammo, r92.8,z12.39,rt nodule. COMPARISON: MG Screening Mammogram from 07/04/2023 MG MG MAMMO SCREENING from 07/01/2024 US US PELVIS TRANSVAGINAL from 07/01/2024 MG MG MAMMO SCREEN CALL BACK BI from 01/01/2025 US US BREAST LT LIMITED from 01/01/2025 US US BREAST RT LIMITED from 01/01/2025 US US BREAST RT LIMITED from 07/07/2025 TECHNIQUE: Craniocaudal and mediolateral oblique Full Field Digital Mammography views of both breasts with Computer Aided Diagnosis followed by Tomosynthesis and bilateral breast ultrasound. FINDINGS: Mammography/Tomosynthesis: Masses: Stable area of nodularity noted in the anterior, medial right breast. Architectural Distortion: None seen. Microcalcifications: No suspicious pleomorphic-type are seen. Coarse calcification again noted in the anterior left breast. Skin Thickening/Nipple Retraction: None. Left breast US: Echotexture: Normal appearance of the glandular tissue. Shadowing: No suspicious foci. Cyst: None. Solid lesions: Stable 11 x 5 x 11 millimeter circumscribed nodule in the 7 o'clock position. Ductal dilation: None. Right breast US: Echotexture: Normal appearance of the glandular tissue. Shadowing: Shattering late to coarse calcification noted in the subareolar region. Cyst: Stable appearance of 12 x 5 x 7 millimeter cyst in the 7 o'clock position 6 cm from nipple. Solid lesions: None seen. Ductal dilation: None. IMPRESSION: 1. No evidence of malignancy is noted. 2. Unless there is more urgent need, follow-up screening mammography is recommended, as per [place] [employer] guidelines. BI-RADS Category 2 - Benign Findings Breast Density - Category C - The breast are heterogeneously dense, which may obscure small masses. Breast density Category C or D implies that the patient has dense breast tissue. Dense breast tissue can make it harder to find cancer on a mammogram. Dense breast tissue is also associated with an increased risk of breast cancer. This information about the result of the mammogram report was provided to the patient to raise their awareness. Use this report when you speak with the patient about their risks for breast cancer, which includes their family history. At that time, you may recommend additional screening tests (Ultrasound or MRI) as these tests may add significant information. A negative radiographic report should not delay biopsy if a dominant or clinically suspicious mass is present. Up to ten percent of cancers are not identified on mammography. A negative report may reinforce clinical impression. Adenosis and dense breasts may obscure an underlying neoplasm. False positive reports average 6 to 10%. Patient will receive a letter notifying them of these results.
== END ==
LOC: DI 02:03
PROVIDERS: PCP Family Medicine; Visit Provider Obstetrics & Gynecology
DX: R92.8 Other abnormal and inconclusive findings on diagnostic imaging of breast (principal); Z12.31 Encounter for screening mammogram for malignant neoplasm of breast
CPT/HCPCS: 76642; 77062; 77066; G0279